=== PATIENT | male | born 1935 | race Caucasian/White ===

== ENCOUNTER 2018-09-28 16:28 | Emergency (ER) | payer MEDICARE, MEDICAID ==
[2018-09-28 17:36] LABS: % BASOPHILS 0.2 % (0.0-2.0); % EOSINOPHILS 2.4 % (0.0-5.0); % LYMPHOCYTES 25.2 % (20.0-50.0); % MONOCYTES 5.6 % (2.0-10.0); % NEUTROPHILS 66.6 % (40.0-80.0); EOSINOPHILE ABSOLUTE 0.2 Th/cmm (0.1-0.4); HEMATOCRIT 41.4 % (41.0-60); HEMOGLOBIN 13.7 gm/dL (12-16); LYMPHOCYTE ABSOLUTE 1.7 Th/cmm (1.5-3.0); MEAN CELL VOLUME 92.1 fl (80-99); MEAN CORPUSCULAR HEMOGLOBIN 30.4 pg (27.0-31.0); MONOCYTE ABSOLUTE 0.4 Th/cmm (0.3-1.0); NEUTROPHILE ABSOLUTE 4.5 Th/cmm (1.8-8.0); PLATELET COUNT 314 Th/cmm (150-400); RED CELL DISTRIBUTION WIDTH 11.7 % (11.5-20.0); WHITE BLOOD COUNT 6.8 Th/cmm (4.8-10.8)
--- NOTE | 2018-09-28 17:46 | ED Physician Chart ---
ED Chief Complaint/HPI - Patient Information Date Seen:: 09/28/18 Time Seen:: 16:55 Chief Complaint:: psychosis History of Present Illness:: this is a custodial patient that was sent here for evaluation and treatment for possible psych condition. Allergies:: Allergies Allergy/AdvReac Type Severity Reaction Status Date / Time No Known Allergies Allergy Verified 09/28/18 16:45 Vitals:: Vital Signs - 8 hr 09/28/18 09/28/18 16:45 17:16 Temp 97.9 F 98.2 F HR 75 65 RR 16 15 BP 132/74 121/62 O2 Sat % 98 65 Historian:: Medical Records Review:: Nurse's Note Reviewed, Transfer documents Reviewed ED Review of Systems - Review of Systems General/Constitutional: Other (this patient is unable to give a review of systems.) Skin: No skin lesions, No rash, No bruising Head: No headache, No light-headedness Eyes: No loss of vision, No pain, No diplopia ENT: No earache, No nasal drainage, No sore throat, No tinnitus Neck: No neck pain, No swelling, No thyromegaly, No stiffness, No mass noted Cardio Vascular: No chest pain, No palpitations, No PND, No orthopnea, No edema Pulmonary: No SOB, No cough, No sputum, No wheezing GI: No nausea, No vomiting, No diarrhea, No pain, No melena, No hematochezia, No constipation, No hematemesis G/U: No dysuria, No frequency, No hematuria Musculoskeletal: No bone or joint pain, No back pain, No muscle pain Endocrine: No polyuria, No polydipsia Psychiatric: No prior psych history, No depression, No anxiety, No suicidal ideation Hematopoietic: No bruising, No lymphadenopathy Allergic/Immuno: No urticaria, No angioedema Neurological: No syncope, No focal symptoms, No weakness, No paresthesia, No headache, No seizure, No dizziness, No confusion, No vertigo ED Past Medical History - Past Medical History Obtainable: Yes Past Medical History: Dyslipidemia, Dementia, Other (bph,) Family History: None Social History: Non Smoker, No Alcohol, No Drug Use, Care Facility Surgical History: None Psychiatricy History: Depression, Dementia Medication: Reviewed ED Physical Exam - Physical Examination General/Constitutional: Awake, Well-developed, well-nourished, Alert, No distress, GCS 15, Non-toxic appearing, Ambulatory Other Gen/Cons comments:: loud and psychotic Head: Atraumatic Eyes: Lids, conjuctiva normal, PERRL, EOMI Skin: Nl inspection, No rash, No skin lesions, No ecchymosis, Well hydrated, No lymphadenopathy ENMT: External ears, nose nl, Nasal exam nl, Lips, teeth, gums nl Neck: Nontender, Full ROM w/o pain, No JVD, No nuchal rigidity, No bruit, No mass, No stridor Respiratory: Nl effort/Exclusion, Clear to Auscultation, No Wheeze/Rhonchi/Rales Cardio Vascular: RRR, No murmur, gallop, rubs, NL S1 S2 GI: No tenderness/rebounding/guarding, No organomegaly, No hernia, Normal BS's, Nondistended, No mass/bruits, No McBurney tenderness : No CVA tenderness Extremities: No tenderness or effusion, Full ROM, normal strength in all extremities, No edema, Normal digits & nails Neuro/Psych: Alert/oriented, DTR's symmetric, Normal sensory exam, Normal motor strength, Judgement/insight normal, Mood normal, Normal gait, No focal deficits Misc: Normal back, No paraspinal tenderness ED Labs/Radiology/EKG Results - Lab Results Results: Abnormal Lab Results 09/28/18 09/28/18 09/28/18 17:05 17:05 17:05 WBC 6.8 RBC 4.50 Hgb 13.7 Hct 41.4 MCV 92.1 MCH 30.4 MCHC Differential 33.0 RDW 11.7 Plt Count 314 MPV 8.6 Neutrophils % 66.6 Lymphocytes % 25.2 Monocytes % 5.6 Eosinophils % 2.4 Basophils % 0.2 PT 10.8 INR 1.04 PTT (Actin FS) 27.5 Sodium 145 Potassium 4.1 Chloride 109 H Carbon Dioxide 27.1 Anion Gap 13.0 BUN 17 Creatinine 1.1 Est GFR ( Amer) TNP Est GFR (Non-Af Amer) TNP BUN/Creatinine Ratio 15.5 Glucose 98 Calcium 9.4 Total Bilirubin 0.4 AST 12 L ALT 9 Alkaline Phosphatase 64 Troponin I Total Protein 7.0 Albumin 4.1 L Globulin 2.9 Albumin/Globulin Ratio 1.4 TSH Urine Source Urine Color Urine Clarity Urine pH Ur Specific [place] Urine Protein Urine Glucose (UA) Urine Ketones Urine Blood Urine Nitrate Urine Bilirubin Urine Urobilinogen Ur Leukocyte Esterase Urine RBC Urine WBC Ur Epithelial Cells Urine Bacteria Urine Mucus 09/28/18 09/28/18 09/28/18 17:05 17:05 17:50 WBC RBC Hgb Hct MCV MCH MCHC Differential RDW Plt Count MPV Neutrophils % Lymphocytes % Monocytes % Eosinophils % Basophils % PT INR PTT (Actin FS) Sodium Potassium Chloride Carbon Dioxide Anion Gap BUN Creatinine Est GFR ( Amer) Est GFR (Non-Af Amer) BUN/Creatinine Ratio Glucose Calcium Total Bilirubin AST ALT Alkaline Phosphatase Troponin I 0.01 Total Protein Albumin Globulin Albumin/Globulin Ratio TSH 1.21 Urine Source CLEAN C Urine Color YELLOW Urine Clarity HAZY Urine pH 8.0 Ur Specific [place] 1.015 Urine Protein TRACE Urine Glucose (UA) NEGATIVE Urine Ketones NEGATIVE Urine Blood LARGE H Urine Nitrate NEGATIVE Urine Bilirubin NEGATIVE Urine Urobilinogen 1.0 Ur Leukocyte Esterase TRACE H Urine RBC 50-100 H Urine WBC 2-5 Ur Epithelial Cells FEW Urine Bacteria FEW Urine Mucus FEW ED Assessment - Assessment General Assessment: psychosis ED Septic Shock - . Is Septic Shock (SBP<90, OR Lactate>4 mmol\L) present?: No - <6hrs of presentation: Vital Signs: Vital Signs - 8 hr 09/28/18 09/28/18 16:45 17:16 Temp 97.9 F 98.2 F HR 75 65 RR 16 15 BP 132/74 121/62 O2 Sat % 98 65 ED Reassessment (Disposition) - Reassessment Reassessment Condition:: Improved - Diagnosis Diagnosis:: psychosis - Aftercare/Follow up Instructions Aftercare/Follow-Up Instructions:: Counseled pt regarding lab results/diagnosis & need follow up, Refer to Discharge Instructions, Counseled pt & family regarding lab results/diagnosis & need follow up - Patient Disposition Discharge/Transfer:: Home Condition at Disposition:: Improved
[2018-09-28 17:48] LABS: INR 1.04 (0.5-1.4)
[2018-09-28 18:09] LABS: URINE BILIRUBIN NEGATIVE (NEGATIVE); URINE BLOOD LARGE (NEGATIVE); URINE GLUCOSE (UA) NEGATIVE (NEGATIVE); URINE KETONE NEGATIVE (NEGATIVE); URINE LEUKOCYTE ESTERASE TRACE (NEGATIVE); URINE MICROSCOPIC INDICATED? YES; URINE NITRATE NEGATIVE (NEGATIVE); URINE PROTEIN TRACE mg/dL (NEGATIVE); URINE SOURCE CLEAN C
[2018-09-28 18:14] LABS: URINE CLARITY HAZY (CLEAR); URINE COLOR YELLOW
[2018-09-28 18:19] LABS: URINE RBC 50-100 /hpf (0-5)
[2018-09-28 18:20] LABS: URINE BACTERIA FEW /hpf (NONE SEEN); URINE EPITHELIAL CELLS FEW /lpf (FEW)
[2018-09-28] MEDS ORDERED: Haloperidol Lactate 5 mg/mL 1mL Vial IM STA (18:35)
[2018-09-28 18:48] LABS: ALB/GLOB RATIO 1.4 (1.0-1.8); ALBUMIN 4.1 gm/dL (4.2-5.5); ALKALINE PHOSPHATASE 64 U/L (34-104); BILIRUBIN,TOTAL 0.4 mg/dL (0.3-1.0); BUN - UREA NITROGEN 17 mg/dL (7-25); CALCIUM SERUM 9.4 mg/dL (8.6-10.3); CARBON DIOXIDE 27.1 mEq/L (21.0-31.0); CHLORIDE 109 mEq/L (98-107); CREATININE - SERUM 1.1 mg/dL (0.7-1.3); GLUCOSE 98 mg/dL (70-105); POTASSIUM SERUM 4.1 mEq/L (3.5-5.1); SGOT 12 U/L (13-39); SGPT/ALT 9 U/L (7-52); SODIUM SERUM 145 mEq/L (136-145)
== END 2018-09-28 18:57 ==
LOC: ER 16:28
DX: F29 Unspecified psychosis not due to a substance or known physiological condition (principal); E78.5 Hyperlipidemia, unspecified; F32.9 Major depressive disorder, single episode, unspecified; F03.90 Unspecified dementia, unspecified severity, without behavioral disturbance, psychotic disturbance, mood disturbance, and anxiety
CPT/HCPCS: 99284; 93005; 84484; 36415; 84443; 85025; 85610; 85730; 81001; 80053; J2060

== ENCOUNTER 2018-12-04 20:20 | Inpatient (IN) | payer MEDICARE, OTHER ==
--- NOTE | 2018-12-04 20:59 | ED Physician Chart ---
ED Chief Complaint/HPI - Patient Information Date Seen:: 12/04/18 Time Seen:: 20:56 Chief Complaint:: combative behaviour History of Present Illness:: 83 yr old male originally from [place] speaks swedish here for combative behavior Allergies:: Allergies Allergy/AdvReac Type Severity Reaction Status Date / Time No Known Allergies Allergy Verified 09/28/18 16:45 Vitals:: Vital Signs - 8 hr 12/04/18 20:20 HR 72 RR 18 BP 118/72 O2 Sat % 99 ED Review of Systems - Review of Systems General/Constitutional: No fever, No chills, No weight loss, No weakness, No diaphoresis, No edema, No loss of appetite Skin: No skin lesions, No rash, No bruising Head: No headache, No light-headedness Eyes: No loss of vision, No pain, No diplopia ENT: No earache, No nasal drainage, No sore throat, No tinnitus Neck: No neck pain, No swelling, No thyromegaly, No stiffness, No mass noted Cardio Vascular: No chest pain, No palpitations, No PND, No orthopnea, No edema Pulmonary: No SOB, No cough, No sputum, No wheezing GI: No nausea, No vomiting, No diarrhea, No pain, No melena, No hematochezia, No constipation, No hematemesis G/U: No dysuria, No frequency, No hematuria Musculoskeletal: No bone or joint pain, No back pain, No muscle pain Endocrine: No polyuria, No polydipsia Psychiatric: No prior psych history, No depression, No anxiety, No suicidal ideation Hematopoietic: No bruising, No lymphadenopathy Allergic/Immuno: No urticaria, No angioedema Neurological: No syncope, No focal symptoms, No weakness, No paresthesia, No headache, No seizure, No dizziness, No confusion, No vertigo ED Past Medical History - Past Medical History Past Medical History: Other (see nurses report) Family Medical History - Family Member Mother History Unknown: Yes ED Physical Exam - Physical Examination General/Constitutional: Awake, Well-developed, well-nourished, Alert, No distress, GCS 15, Non-toxic appearing, Ambulatory Head: Atraumatic Eyes: Lids, conjuctiva normal, PERRL, EOMI Skin: Nl inspection, No rash, No skin lesions, No ecchymosis, Well hydrated, No lymphadenopathy ENMT: External ears, nose nl, Nasal exam nl, Lips, teeth, gums nl Neck: Nontender, Full ROM w/o pain, No JVD, No nuchal rigidity, No bruit, No mass, No stridor Respiratory: Nl effort/Exclusion, Clear to Auscultation, No Wheeze/Rhonchi/Rales Cardio Vascular: RRR, No murmur, gallop, rubs, NL S1 S2 GI: No tenderness/rebounding/guarding, No organomegaly, No hernia, Normal BS's, Nondistended, No mass/bruits, No McBurney tenderness : No CVA tenderness Extremities: No tenderness or effusion, Full ROM, normal strength in all extremities, No edema, Normal digits & nails Neuro/Psych: Alert/oriented, DTR's symmetric, Normal sensory exam, Normal motor strength, Judgement/insight normal, Mood normal, Normal gait, No focal deficits Misc: Normal back, No paraspinal tenderness ED Assessment - Assessment General Assessment: comative behaviour ED Septic Shock - . Is Septic Shock (SBP<90, OR Lactate>4 mmol\L) present?: No - <6hrs of presentation: Vital Signs: Vital Signs - 8 hr / 20:20 HR 72 RR 18 BP 118/72 O2 Sat % 99 ED Reassessment (Disposition) - Reassessment Reassessment:: combative behaviour geropsych - Diagnosis Diagnosis:: as above - Patient Disposition Discharge/Transfer:: Acute Care w/in this hosp Admitted to:: [facility] Condition at Disposition:: Stable
[2018-12-04 21:41] LABS: % EOSINOPHILS 2.6 % (0.0-5.0); % MONOCYTES 7.9 % (2.0-10.0); % NEUTROPHILS 49.5 % (40.0-80.0); EOSINOPHILE ABSOLUTE 0.1 Th/cmm (0.1-0.4); HEMATOCRIT 41.8 % (41.0-60); HEMOGLOBIN 13.9 gm/dL (12-16); LYMPHOCYTE ABSOLUTE 2.3 Th/cmm (1.5-3.0); MEAN CELL VOLUME 91.3 fl (80-99); MEAN CORPUSCULAR HEMOGLOBIN 30.4 pg (27.0-31.0); MEAN CORPUSCULAR HGB CONC 33.3 pg (28.0-36.0); MONOCYTE ABSOLUTE 0.5 Th/cmm (0.3-1.0); NEUTROPHILE ABSOLUTE 2.8 Th/cmm (1.8-8.0); PLATELET COUNT 286 Th/cmm (150-400); RED BLOOD COUNT 4.58 Mil/cmm (3.80-5.80); RED CELL DISTRIBUTION WIDTH 11.3 % (11.5-20.0); WHITE BLOOD COUNT 5.7 Th/cmm (4.8-10.8)
[2018-12-04 22:04] LABS: ALB/GLOB RATIO 1.4 (1.0-1.8); ALKALINE PHOSPHATASE 52 U/L (34-104); ANION GAP 12.6 (7.0-16.0); BILIRUBIN,TOTAL 0.5 mg/dL (0.3-1.0); CALCIUM SERUM 9.1 mg/dL (8.6-10.3); CARBON DIOXIDE 26.3 mEq/L (21.0-31.0); CHLORIDE 106 mEq/L (98-107); CREATININE - SERUM 0.9 mg/dL (0.7-1.3); POTASSIUM SERUM 3.9 mEq/L (3.5-5.1); SGOT 14 U/L (13-39); SGPT/ALT 11 U/L (7-52); SODIUM SERUM 141 mEq/L (136-145); TOTAL PROTEIN,SERUM 6.5 gm/dL (6.0-8.3)
[2018-12-04 23:44] LABS: BUN - UREA NITROGEN 19 mg/dL (7-25)
[2018-12-05 08:01] LABS: ALBUMIN 3.8 gm/dL (4.2-5.5); GLUCOSE 106 mg/dL (70-105)
[2018-12-05] MEDS ORDERED: Aspirin 81mg Chewable Tab PO ONE (10:31)
[2018-12-05] MEDS ORDERED: Aspirin 81mg Chewable Tab ONE (10:32)
[2018-12-06] MEDS ORDERED: Haloperidol Lactate 5 mg/mL 1mL Vial IM STA (18:25)
[2018-12-06] MEDS ORDERED: Haloperidol Lactate 5 mg/mL 1mL Vial ONE (18:55)
[2018-12-07] MEDS ORDERED: Aspirin 81mg Chewable Tab PO STA (11:42)
[2018-12-08] MEDS ORDERED: Aspirin 325 mg EC PO ONE (08:31)
[2018-12-08] MEDS ORDERED: Aspirin 81mg Chewable Tab ONE (09:25)
[2018-12-09] MEDS ORDERED: Aspirin 81mg Chewable Tab PO STA (07:50)
[2018-12-09] MEDS ORDERED: Aspirin 81mg Chewable Tab ONE (08:59)
[2018-12-09] MEDS ORDERED: Haloperidol Lactate 5 mg/mL 1mL Vial ONE (16:25)
[2018-12-09] MEDS ORDERED: Haloperidol Lactate 5 mg/mL 1mL Vial IM STA (16:38)
[2018-12-10] MEDS ORDERED: Maalox 30 mL Cup PO PRN (16:15)
[2018-12-10] MEDS ORDERED: Magnesium Hydroxide (MOM) 30 mL UDC PO PRN (16:15)
--- NOTE | 2018-12-11 09:01 | History and Physical ---
History of Present Illness - HPI Chief Complaint: psychosis HPI: 83 y/o male who presents to [facility] ER for increased combatitive behavoir noted at the SNF. Patient was subsequently transferred to for further evaluation and treatment. Initial labwork done in the ER revealed the following... WBC 5.7 H/H 13.9/41.8 plat 286 Na 141 K 3.9 Bun/Cr 19/0.9 glu 106 PMH includes Major depression, dementia, dyslipidemia, BPH, chronic constipation , OA, h/o CVA, chronic back pain Patient was subsequently admitted for further evaluation and treatment. 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, Dementia GI: Report: No Pertinent Hx, Other (chronic constipation) Psych: Report: Depression Musculoskeletal: Report: Low Back Pain, Osteoarthritis Rheumatologic: Report: No pertinent Hx Infectious Disease: Report: No Pertinent Hx Renal/: Report: Benign Prostatic Enlarg Endocrine: Report: No Pertinent Hx - Past Surgical History Past Surgical History: No pertinent Hx Family Medical History - Family Member Mother History Unknown: Yes Social History Smoke: No Alcohol: None Drugs: None Lives: Intermediate - Medications Home Medications: Home Medication Medication Instructions Recorded Type Acetaminophen [Tylenol] 325 mg PO Q4HR PRN 12/04/18 History Al Hyd/Mg Hyd/Simethicone [Maalox] 30 ml PO Q4HR PRN 12/04/18 History Aspirin [Adult Low Dose Aspirin EC] 81 mg PO DAILY 12/04/18 History Atorvastatin Calcium [Lipitor] 10 mg PO HS 12/04/18 History Clopidogrel Bisulfate [Plavix] 75 mg PO DAILY 12/04/[address] [Depakote DR] 250 mg PO BID 12/04/18 History Docusate Sodium [Colace] 100 mg PO BID 12/04/18 History Donepezil HCl [Aricept] 10 mg PO DAILY 12/04/18 History Lorazepam [Ativan] 1 mg PO Q6HR PRN 12/04/18 History Magnesium Hydroxide [Milk of 30 ml PO DAILY PRN 12/04/18 History Magnesia] Polyethylene Glycol 3350 [Miralax] 17 gm PO DAILY 12/04/18 History QUEtiapine Fumarate [SEROquel] 100 mg PO BID 12/04/18 History Sennosides A and B [Senna] 8.6 mg PO HS 12/04/18 History Tamsulosin [Flomax] 0.4 mg PO HS 12/04/18 History - Allergies Allergies/Adverse Reactions: Allergies Allergy/AdvReac Type Severity Reaction Status Date / Time No Known Allergies Allergy Verified 09/28/18 16:45 Review of Systems - Review of Systems Constitutional: Report: No Significant Eyes: Report: No Significant ENT: Report: No Significant Respiratory: Report: No Significant Cardiovascular: Report: No Significant Gastrointestinal: Report: No Significant Genitourinary: Report: No Significant Musculoskeletal: Report: No Significant Skin: Report: No Significant Neurological: Report: No Significant Physical Exam - Physical Exam HEENT: Report: Ears Nose Throat within normal limits, Pharnyx within normal limits Neck: Report: Within normal limits Cardiovascular Systems: Report: +s1/s2 noted, Regular, Rate and Rhythm Respiratory: Report: Breath Sounds are within normal limits, Clear to Auscultation of lung lorenzo Abdomen: Report: Non-tender to palpation Back: Report: Inspection of back is within normal limits. Extremities: Report: Non-tender to palpation. Skin: Report: Color of skin is within normal limits Neuro/Psych: Report: Mood affect is within normal limits, A+Ox3, CN II-XII intact - Assessment Assessment: psychosis Major Depression Dementia Dyslipidemia BPH Chronic constipation OA h/o CVA chronic back pain - Plan Plan: admit to [facility] continue home meds
[2018-12-11] MEDS ORDERED: Maalox 30 mL Cup PO PRN (09:11)
[2018-12-11] MEDS ORDERED: Magnesium Hydroxide (MOM) 30 mL UDC PO PRN (09:11)
[2018-12-11] MEDS: Multivitamin Tab PO SCH (09:13)
[2018-12-11] MEDS: Atorvastatin Calcium 10 MG TAB PO SCH (20:42)
--- NOTE | 2018-12-11 21:35 | Psychiatric Evaluation ---
DATE OF SERVICE: 12/11/2018 JUSTIFICATION FOR HOSPITALIZATION: Combative behaviors. HISTORY OF PRESENT ILLNESS: This is an 83-year-old male, very confused, states that he is here to "make an ID card." States the year is "71" then corrects himself and states the year is "73," the month "73." When I asked him where he is, he states "this area." The patient apparently was combative. PAST PSYCHIATRIC HISTORY: Concerns for dementia. FAMILY HISTORY: Noncontributory. SOCIAL HISTORY: The patient states he was born in [place], states he is , has one child. Unclear where the patient lives, stating "this area." The patient is currently staying at [facility]. MENTAL STATUS EXAMINATION: Stated age. Fair eye contact. Speech within normal limits, impoverished. Mood "okay." Affect flat. Thought processes were disengaged. No overt SI or HI. Poor insight. PROVISIONAL DIAGNOSES: Concerns for dementia; mood, unspecified; psychosis, unspecified; anxiety, unspecified. MEDICAL: Please see full H and P. ESTIMATED LENGTH OF STAY: 7-10 days. ASSESSMENT: The patient requiring hospitalization concerns for combative behavioral disturbances, agitation. TREATMENT PLAN: Includes group as well as milieu therapy, medication adjustments. CONDITIONS FOR DISCHARGE: Improved mood, improved affect, better control of his behaviors. [facility]# [id number]
--- NOTE | 2018-12-12 07:59 | Progress Notes ---
DATE: SUBJECTIVE: Chart reviewed and the patient interviewed. Also discussed the patient's condition with the staff and reviewed records and labs. The patient is still confused and is still anxious. The patient also is hyperverbal and he is still exhibiting grandiose delusions and thinking that he is a multimillionaire and that he has a lot of millions that he wants to give away through the people. The patient also is still restless and is still in angry mood. Otherwise, the patient is compliant with taking medications with no side effects of medications. ASSESSMENT: The patient is still agitated and is still psychotic. TREATMENT PLAN: We will continue to monitor behavior and condition closely. Also, we will get a Depakote blood level. Also, continue adjusting psychotropic medications and work on behavioral modification. The patient started on Seroquel 100 mg twice a day. The patient is still agitated and still needs close monitoring. Plan to get a Depakote blood level and continue to follow up. Also, work on placement issue and discharge plans. JOB# [id number]
--- NOTE | 2018-12-12 08:03 | General Progress Note ---
Subjective - Review of Systems Service Date: 12/12/18 Subjective: Patient is awake, alert, afebrile VS T 97.4 P 60 R 20 BP 114/60 Objective - Results Result Diagrams: 12/04/18 21:30 12/04/18 21:30 Recent Labs: Laboratory Last Values WBC 5.7 Th/cmm (4.8-10.8) 12/04/18 21:30 RBC 4.58 Mil/cmm (3.80-5.80) 12/04/18 21:30 Hgb 13.9 gm/dL (12-16) 12/04/18 21:30 Hct 41.8 % (41.0-60) 12/04/18 21:30 MCV 91.3 fl (80-99) 12/04/18 21:30 MCH 30.4 pg (27.0-31.0) 12/04/18 21:30 MCHC Differential 33.3 pg (28.0-36.0) 12/04/18 21:30 RDW 11.3 % (11.5-20.0) L 12/04/18 21:30 Plt Count 286 Th/cmm (150-400) 12/04/18 21:30 MPV 8.4 fl 12/04/18 21:30 Neutrophils % 49.5 % (40.0-80.0) 12/04/18 21:30 Lymphocytes % 40.0 % (20.0-50.0) 12/04/18 21:30 Monocytes % 7.9 % (2.0-10.0) 12/04/18 21:30 Eosinophils % 2.6 % (0.0-5.0) 12/04/18 21:30 Basophils % 0.0 % (0.0-2.0) 12/04/18 21:30 Sodium 141 mEq/L (136-145) 12/04/18 21:30 Potassium 3.9 mEq/L (3.5-5.1) 12/04/18 21:30 Chloride 106 mEq/L (98-107) 12/04/18 21:30 Carbon Dioxide 26.3 mEq/L (21.0-31.0) 12/04/18 21:30 Anion Gap 12.6 (7.0-16.0) 12/04/18 21:30 BUN 19 mg/dL (7-25) 12/04/18 21:30 Creatinine 0.9 mg/dL (0.7-1.3) 12/04/18 21:30 Est GFR ( Amer) TNP 12/04/18 21:30 Est GFR (Non-Af Amer) TNP 12/04/18 21:30 BUN/Creatinine Ratio 21.1 12/04/18 21:30 Glucose 106 mg/dL (70-105) H 12/04/18 21:30 Calcium 9.1 mg/dL (8.6-10.3) 12/04/18 21:30 Total Bilirubin 0.5 mg/dL (0.3-1.0) 12/04/18 21:30 AST 14 U/L (13-39) 12/04/18 21:30 ALT 11 U/L (7-52) 12/04/18 21:30 Alkaline Phosphatase 52 U/L (34-104) 12/04/18 21:30 Total Protein 6.5 gm/dL (6.0-8.3) 12/04/18 21:30 Albumin 3.8 gm/dL (4.2-5.5) L 12/04/18 21:30 Globulin 2.7 gm/dL 12/04/18 21:30 Albumin/Globulin Ratio 1.4 (1.0-1.8) 12/04/18 21:30 - Physical Exam Vitals and I&O: Vital Signs Temp 97.4 F 12/12/18 06:40 Pulse 60 12/12/18 06:40 Resp 20 12/12/18 06:40 BP 114/60 12/12/18 06:40 Pulse Ox 97 12/12/18 06:40 Intake & Output 12/11/18 12/12/18 12/12/18 18:59 06:59 18:59 Intake Total 1200 120 Balance 1200 120 Intake: Oral 1200 120 Other: # Voids 3 # Bowel Movements 1 Active Medications: Current Medications Acetaminophen (Tylenol) 650 mg PO Q4HR PRN PRN Reason: Mild Pain / Temp above 100 Stop: 02/08/19 16:14 Al Hydrox/Mg Hydrox/Simethicone (Maalox) 30 ml PO Q4HR PRN PRN Reason: GI DISTRESS Stop: 02/08/19 16:14 Aspirin (Ecotrin) 81 mg PO DAILY [facility] Stop: 02/10/19 08:59 Atorvastatin Calcium (Lipitor) 10 mg PO HS [facility]; Protocol Stop: 02/09/19 20:59 Last Admin: 12/11/18 20:42 Dose: 10 mg Clopidogrel Bisulfate (Plavix) 75 mg PO DAILY [facility] Stop: 02/10/19 08:59 Divalproex Sodium (Depakote Dr) 250 mg PO BID [facility]; Protocol Stop: 02/10/19 08:59 Docusate Sodium (Colace) 100 mg PO BID [facility] Stop: 02/09/19 16:59 Last Admin: 12/11/18 17:23 Dose: Not Given Donepezil HCl (Aricept) 10 mg PO DAILY [facility] Stop: 02/10/19 08:59 Lorazepam (Ativan) 0.5 mg PO Q4HR PRN; Protocol PRN Reason: anxiety Stop: 01/09/19 16:14 Last Admin: 12/11/18 09:13 Dose: 0.5 mg Magnesium Hydroxide (Milk Of Magnesia) 30 ml PO HS PRN PRN Reason: Constipation Multivitamins/Vitamin C (Theragran) 1 tab PO DAILY [facility] Stop: 02/09/19 08:59 Last Admin: 12/11/18 09:13 Dose: 1 tab Polyethylene Glycol (Miralax) 17 gm PO DAILY [facility] Stop: 02/10/19 08:59 Quetiapine Fumarate (Seroquel) 100 mg PO BID [facility]; Protocol Stop: 02/10/19 08:59 Senna (Senna) 8.6 mg PO HS [facility] Stop: 02/09/19 20:59 Last Admin: 12/11/18 20:43 Dose: 8.6 mg Tamsulosin HCl (Flomax) 0.4 mg PO HS [facility] Stop: 02/09/19 20:59 Last Admin: 12/11/18 20:42 Dose: 0.4 mg Zolpidem Tartrate (Ambien) 5 mg PO HS PRN PRN Reason: Insomnia Stop: 02/08/19 16:14 Last Admin: 12/11/18 20:43 Dose: 5 mg General: Alert, Oriented x3, No acute distress HEENT: Atraumatic, PERRLA, EOMI Neck: Supple Cardiovascular: Regular rate, Normal S1, Normal S2 Lungs: Clear to auscultation Abdomen: Bowel sounds, Soft Extremities: no Clubbing, no Cyanosis, no Edema Neurological: Normal gait Assessment/Plan - Assessment Assessment: psychosis Major Depression Dementia Dyslipidemia BPH Chronic constipation OA h/o CVA chronic back pain - Plan Plan: admit to [facility] continue home meds
[2018-12-12] MEDS: Multivitamin Tab PO SCH (10:08)
[2018-12-12] MEDS: POLYETHYLENE GLYCOL 3350 17 GM PACK PO SCH (10:09)
[2018-12-12] MEDS: Atorvastatin Calcium 10 MG TAB PO SCH (20:49)
--- NOTE | 2018-12-13 07:41 | Progress Notes ---
DATE: SUBJECTIVE: Chart reviewed and the patient interviewed. Also discussed the patient's condition with the staff and reviewed records and labs. The patient still has episodes of irritability. The patient also is restless, especially in the beginning of the day. The patient also is still confused and restless and hyperverbal and needs lots of redirections. Otherwise, the patient started on Seroquel 100 mg twice a day with no side effects. The patient continued to also take Depakote, with no side effects. ASSESSMENT: The patient is still agitated. TREATMENT PLAN: We will monitor the patient's behavior and condition. Actually, it seems that Depakote results are pending, so we will wait and see if the results will come back today or not. JOB# [id number]
[2018-12-13] MEDS: Multivitamin Tab PO SCH (08:19)
[2018-12-13] MEDS: POLYETHYLENE GLYCOL 3350 17 GM PACK PO SCH (08:20)
--- NOTE | 2018-12-13 08:28 | General Progress Note ---
Subjective - Review of Systems Service Date: 12/13/18 Subjective: Patient is awake, alert, afebrile VS T 97.1 P 90 R 20 BP 117/52 Objective - Results Result Diagrams: 12/04/18 21:30 12/04/18 21:30 Recent Labs: Laboratory Last Values WBC 5.7 Th/cmm (4.8-10.8) 12/04/18 21:30 RBC 4.58 Mil/cmm (3.80-5.80) 12/04/18 21:30 Hgb 13.9 gm/dL (12-16) 12/04/18 21:30 Hct 41.8 % (41.0-60) 12/04/18 21:30 MCV 91.3 fl (80-99) 12/04/18 21:30 MCH 30.4 pg (27.0-31.0) 12/04/18 21:30 MCHC Differential 33.3 pg (28.0-36.0) 12/04/18 21:30 RDW 11.3 % (11.5-20.0) L 12/04/18 21:30 Plt Count 286 Th/cmm (150-400) 12/04/18 21:30 MPV 8.4 fl 12/04/18 21:30 Neutrophils % 49.5 % (40.0-80.0) 12/04/18 21:30 Lymphocytes % 40.0 % (20.0-50.0) 12/04/18 21:30 Monocytes % 7.9 % (2.0-10.0) 12/04/18 21:30 Eosinophils % 2.6 % (0.0-5.0) 12/04/18 21:30 Basophils % 0.0 % (0.0-2.0) 12/04/18 21:30 Sodium 141 mEq/L (136-145) 12/04/18 21:30 Potassium 3.9 mEq/L (3.5-5.1) 12/04/18 21:30 Chloride 106 mEq/L (98-107) 12/04/18 21:30 Carbon Dioxide 26.3 mEq/L (21.0-31.0) 12/04/18 21:30 Anion Gap 12.6 (7.0-16.0) 12/04/18 21:30 BUN 19 mg/dL (7-25) 12/04/18 21:30 Creatinine 0.9 mg/dL (0.7-1.3) 12/04/18 21:30 Est GFR ( Amer) TNP 12/04/18 21:30 Est GFR (Non-Af Amer) TNP 12/04/18 21:30 BUN/Creatinine Ratio 21.1 12/04/18 21:30 Glucose 106 mg/dL (70-105) H 12/04/18 21:30 Calcium 9.1 mg/dL (8.6-10.3) 12/04/18 21:30 Total Bilirubin 0.5 mg/dL (0.3-1.0) 12/04/18 21:30 AST 14 U/L (13-39) 12/04/18 21:30 ALT 11 U/L (7-52) 12/04/18 21:30 Alkaline Phosphatase 52 U/L (34-104) 12/04/18 21:30 Total Protein 6.5 gm/dL (6.0-8.3) 12/04/18 21:30 Albumin 3.8 gm/dL (4.2-5.5) L 12/04/18 21:30 Globulin 2.7 gm/dL 12/04/18 21:30 Albumin/Globulin Ratio 1.4 (1.0-1.8) 12/04/18 21:30 - Physical Exam Vitals and I&O: Vital Signs Temp 97.1 F 12/12/18 14:00 Pulse 90 12/12/18 14:00 Resp 20 12/12/18 16:08 BP 117/52 12/12/18 14:00 Pulse Ox 95 12/12/18 14:00 Intake & Output 12/12/18 12/13/18 12/13/18 18:59 06:59 18:59 Intake Total 1100 Balance 1100 Intake: Oral 1100 Other: # Bowel Movements 1 Stool Characteristics Soft Brown Active Medications: Current Medications Acetaminophen (Tylenol) 650 mg PO Q4HR PRN PRN Reason: Mild Pain / Temp above 100 Stop: 02/08/19 16:14 Al Hydrox/Mg Hydrox/Simethicone (Maalox) 30 ml PO Q4HR PRN PRN Reason: GI DISTRESS Stop: 02/08/19 16:14 Aspirin (Ecotrin) 81 mg PO DAILY [facility] Stop: 02/10/19 08:59 Last Admin: 12/13/18 08:20 Dose: Not Given Atorvastatin Calcium (Lipitor) 10 mg PO HS [facility]; Protocol Stop: 02/09/19 20:59 Last Admin: 12/12/18 20:49 Dose: 10 mg Clopidogrel Bisulfate (Plavix) 75 mg PO DAILY [facility] Stop: 02/10/19 08:59 Last Admin: 12/13/18 08:19 Dose: 75 mg Divalproex Sodium (Depakote Dr) 250 mg PO BID [facility]; Protocol Stop: 02/10/19 08:59 Last Admin: 12/13/18 08:19 Dose: 250 mg Docusate Sodium (Colace) 100 mg PO BID [facility] Stop: 02/09/19 16:59 Last Admin: 12/13/18 08:20 Dose: Not Given Donepezil HCl (Aricept) 10 mg PO DAILY [facility] Stop: 02/10/19 08:59 Last Admin: 12/13/18 08:19 Dose: 10 mg Lorazepam (Ativan) 0.5 mg PO Q4HR PRN; Protocol PRN Reason: anxiety Stop: 01/09/19 16:14 Last Admin: 12/13/18 08:19 Dose: 0.5 mg Magnesium Hydroxide (Milk Of Magnesia) 30 ml PO HS PRN PRN Reason: Constipation Multivitamins/Vitamin C (Theragran) 1 tab PO DAILY [facility] Stop: 02/09/19 08:59 Last Admin: 12/13/18 08:19 Dose: Not Given Polyethylene Glycol (Miralax) 17 gm PO DAILY [facility] Stop: 02/10/19 08:59 Last Admin: 12/13/18 08:20 Dose: Not Given Quetiapine Fumarate (Seroquel) 100 mg PO BID [facility]; Protocol Stop: 02/10/19 08:59 Last Admin: 12/13/18 08:19 Dose: 100 mg Senna (Senna) 8.6 mg PO HS [facility] Stop: 02/09/19 20:59 Last Admin: 12/12/18 20:49 Dose: 8.6 mg Tamsulosin HCl (Flomax) 0.4 mg PO HS [facility] Stop: 02/09/19 20:59 Last Admin: 12/12/18 20:48 Dose: 0.4 mg Zolpidem Tartrate (Ambien) 5 mg PO HS PRN PRN Reason: Insomnia Stop: 02/08/19 16:14 Last Admin: 12/12/18 20:49 Dose: 5 mg General: Alert, Oriented x3, No acute distress HEENT: Atraumatic, PERRLA, EOMI Neck: Supple Cardiovascular: Regular rate, Normal S1, Normal S2 Lungs: Clear to auscultation Abdomen: Bowel sounds, Soft Extremities: no Clubbing, no Cyanosis, no Edema Neurological: Normal gait Assessment/Plan - Assessment Assessment: psychosis Major Depression Dementia Dyslipidemia BPH Chronic constipation OA h/o CVA chronic back pain - Plan Plan: admit to [facility] continue home meds
[2018-12-13] MEDS: Atorvastatin Calcium 10 MG TAB PO SCH (21:55)
[2018-12-14] MEDS: POLYETHYLENE GLYCOL 3350 17 GM PACK PO SCH (08:03)
[2018-12-14] MEDS: Multivitamin Tab PO SCH (08:03)
--- NOTE | 2018-12-14 08:15 | General Progress Note ---
Subjective - Review of Systems Service Date: 12/14/18 Subjective: Patient is awake, alert, afebrile VS T 95.6 P 100 R 18 BP 94/60 Objective - Results Result Diagrams: 12/04/18 21:30 12/04/18 21:30 Recent Labs: Laboratory Last Values WBC 5.7 Th/cmm (4.8-10.8) 12/04/18 21:30 RBC 4.58 Mil/cmm (3.80-5.80) 12/04/18 21:30 Hgb 13.9 gm/dL (12-16) 12/04/18 21:30 Hct 41.8 % (41.0-60) 12/04/18 21:30 MCV 91.3 fl (80-99) 12/04/18 21:30 MCH 30.4 pg (27.0-31.0) 12/04/18 21:30 MCHC Differential 33.3 pg (28.0-36.0) 12/04/18 21:30 RDW 11.3 % (11.5-20.0) L 12/04/18 21:30 Plt Count 286 Th/cmm (150-400) 12/04/18 21:30 MPV 8.4 fl 12/04/18 21:30 Neutrophils % 49.5 % (40.0-80.0) 12/04/18 21:30 Lymphocytes % 40.0 % (20.0-50.0) 12/04/18 21:30 Monocytes % 7.9 % (2.0-10.0) 12/04/18 21:30 Eosinophils % 2.6 % (0.0-5.0) 12/04/18 21:30 Basophils % 0.0 % (0.0-2.0) 12/04/18 21:30 Sodium 141 mEq/L (136-145) 12/04/18 21:30 Potassium 3.9 mEq/L (3.5-5.1) 12/04/18 21:30 Chloride 106 mEq/L (98-107) 12/04/18 21:30 Carbon Dioxide 26.3 mEq/L (21.0-31.0) 12/04/18 21:30 Anion Gap 12.6 (7.0-16.0) 12/04/18 21:30 BUN 19 mg/dL (7-25) 12/04/18 21:30 Creatinine 0.9 mg/dL (0.7-1.3) 12/04/18 21:30 Est GFR ( Amer) TNP 12/04/18 21:30 Est GFR (Non-Af Amer) TNP 12/04/18 21:30 BUN/Creatinine Ratio 21.1 12/04/18 21:30 Glucose 106 mg/dL (70-105) H 12/04/18 21:30 Calcium 9.1 mg/dL (8.6-10.3) 12/04/18 21:30 Total Bilirubin 0.5 mg/dL (0.3-1.0) 12/04/18 21:30 AST 14 U/L (13-39) 12/04/18 21:30 ALT 11 U/L (7-52) 12/04/18 21:30 Alkaline Phosphatase 52 U/L (34-104) 12/04/18 21:30 Total Protein 6.5 gm/dL (6.0-8.3) 12/04/18 21:30 Albumin 3.8 gm/dL (4.2-5.5) L 12/04/18 21:30 Globulin 2.7 gm/dL 12/04/18 21:30 Albumin/Globulin Ratio 1.4 (1.0-1.8) 12/04/18 21:30 - Physical Exam Vitals and I&O: Vital Signs Temp 95.6 F 12/13/18 20:00 Pulse 100 12/13/18 20:00 Resp 18 12/13/18 20:00 BP 94/60 12/13/18 20:00 Pulse Ox 98 12/13/18 20:00 Intake & Output 12/13/18 12/14/18 12/14/18 18:59 06:59 18:59 Intake Total 900 Balance 900 Intake: Oral 900 Other: # Voids 3 # Bowel Movements 1 Stool Characteristics Soft Brown Active Medications: Current Medications Acetaminophen (Tylenol) 650 mg PO Q4HR PRN PRN Reason: Mild Pain / Temp above 100 Stop: 02/08/19 16:14 Al Hydrox/Mg Hydrox/Simethicone (Maalox) 30 ml PO Q4HR PRN PRN Reason: GI DISTRESS Stop: 02/08/19 16:14 Aspirin (Ecotrin) 81 mg PO DAILY [facility] Stop: 02/10/19 08:59 Last Admin: 12/14/18 08:03 Dose: 81 mg Atorvastatin Calcium (Lipitor) 10 mg PO HS [facility]; Protocol Stop: 02/09/19 20:59 Last Admin: 12/13/18 21:55 Dose: 10 mg Clopidogrel Bisulfate (Plavix) 75 mg PO DAILY [facility] Stop: 02/10/19 08:59 Last Admin: 12/14/18 08:02 Dose: 75 mg Divalproex Sodium (Depakote Dr) 250 mg PO BID [facility]; Protocol Stop: 02/10/19 08:59 Last Admin: 12/14/18 08:02 Dose: 250 mg Docusate Sodium (Colace) 100 mg PO BID [facility] Stop: 02/09/19 16:59 Last Admin: 12/14/18 08:03 Dose: Not Given Donepezil HCl (Aricept) 10 mg PO DAILY [facility] Stop: 02/10/19 08:59 Last Admin: 12/14/18 08:03 Dose: 10 mg Lorazepam (Ativan) 0.5 mg PO Q4HR PRN; Protocol PRN Reason: anxiety Stop: 01/09/19 16:14 Last Admin: 12/13/18 17:37 Dose: 0.5 mg Magnesium Hydroxide (Milk Of Magnesia) 30 ml PO HS PRN PRN Reason: Constipation Multivitamins/Vitamin C (Theragran) 1 tab PO DAILY [facility] Stop: 02/09/19 08:59 Last Admin: 12/14/18 08:03 Dose: Not Given Polyethylene Glycol (Miralax) 17 gm PO DAILY [facility] Stop: 02/10/19 08:59 Last Admin: 12/14/18 08:03 Dose: Not Given Quetiapine Fumarate (Seroquel) 100 mg PO BID [facility]; Protocol Stop: 02/10/19 08:59 Last Admin: 12/14/18 08:02 Dose: 100 mg Senna (Senna) 8.6 mg PO HS [facility] Stop: 02/09/19 20:59 Last Admin: 12/13/18 21:55 Dose: 8.6 mg Tamsulosin HCl (Flomax) 0.4 mg PO HS [facility] Stop: 02/09/19 20:59 Last Admin: 12/13/18 21:58 Dose: 0.4 mg Zolpidem Tartrate (Ambien) 5 mg PO HS PRN PRN Reason: Insomnia Stop: 02/08/19 16:14 Last Admin: 12/13/18 21:56 Dose: 5 mg General: Alert, Oriented x3, No acute distress HEENT: Atraumatic, PERRLA, EOMI Neck: Supple Cardiovascular: Regular rate, Normal S1, Normal S2 Lungs: Clear to auscultation Abdomen: Bowel sounds, Soft Extremities: no Clubbing, no Cyanosis, no Edema Neurological: Normal gait Assessment/Plan - Assessment Assessment: psychosis Major Depression Dementia Dyslipidemia BPH Chronic constipation OA h/o CVA chronic back pain - Plan Plan: admit to [facility] continue home meds
--- NOTE | 2018-12-14 20:24 | Progress Notes ---
DATE: 12/14/[address] Boles covering for Dr. Lucas. HISTORY IDENTIFYING DATA: This is an 83-year-old male with a history of psychosis presenting confused, stating that he is here to make an ID card. HOSPITAL COURSE: Depressed, isolated, withdrawn. Medication reconciliation reviewed. Currently on Coreg, atorvastatin, aspirin, Depakote 250 b.i.d., Aricept 10 mg a day, Seroquel 100 mg p.o. b.i.d. Today on [id number] evaluation, the patient is disengaged in the interview, is not able to give much information beyond what is gathered from the chart, reporting he does not know why he is here, although noted to be restless. MENTAL STATUS EXAMINATION: Episodes of labile irritability, restlessness. ASSESSMENT AND PLAN: We will continue with primary psychiatrist's treatment plan and goals. He continues to be engaged in labile behavior. Depakote levels are pending. [facility]# [id number]
[2018-12-14] MEDS: Atorvastatin Calcium 10 MG TAB PO SCH (20:46)
--- NOTE | 2018-12-15 08:10 | General Progress Note ---
Subjective - Review of Systems Service Date: 12/15/18 Subjective: Patient is awake, alert, afebrile VS T 97.2 P 70 R 20 BP 124/63 Objective - Results Result Diagrams: 12/04/18 21:30 12/04/18 21:30 Recent Labs: Laboratory Last Values WBC 5.7 Th/cmm (4.8-10.8) 12/04/18 21:30 RBC 4.58 Mil/cmm (3.80-5.80) 12/04/18 21:30 Hgb 13.9 gm/dL (12-16) 12/04/18 21:30 Hct 41.8 % (41.0-60) 12/04/18 21:30 MCV 91.3 fl (80-99) 12/04/18 21:30 MCH 30.4 pg (27.0-31.0) 12/04/18 21:30 MCHC Differential 33.3 pg (28.0-36.0) 12/04/18 21:30 RDW 11.3 % (11.5-20.0) L 12/04/18 21:30 Plt Count 286 Th/cmm (150-400) 12/04/18 21:30 MPV 8.4 fl 12/04/18 21:30 Neutrophils % 49.5 % (40.0-80.0) 12/04/18 21:30 Lymphocytes % 40.0 % (20.0-50.0) 12/04/18 21:30 Monocytes % 7.9 % (2.0-10.0) 12/04/18 21:30 Eosinophils % 2.6 % (0.0-5.0) 12/04/18 21:30 Basophils % 0.0 % (0.0-2.0) 12/04/18 21:30 Sodium 141 mEq/L (136-145) 12/04/18 21:30 Potassium 3.9 mEq/L (3.5-5.1) 12/04/18 21:30 Chloride 106 mEq/L (98-107) 12/04/18 21:30 Carbon Dioxide 26.3 mEq/L (21.0-31.0) 12/04/18 21:30 Anion Gap 12.6 (7.0-16.0) 12/04/18 21:30 BUN 19 mg/dL (7-25) 12/04/18 21:30 Creatinine 0.9 mg/dL (0.7-1.3) 12/04/18 21:30 Est GFR ( Amer) TNP 12/04/18 21:30 Est GFR (Non-Af Amer) TNP 12/04/18 21:30 BUN/Creatinine Ratio 21.1 12/04/18 21:30 Glucose 106 mg/dL (70-105) H 12/04/18 21:30 Calcium 9.1 mg/dL (8.6-10.3) 12/04/18 21:30 Total Bilirubin 0.5 mg/dL (0.3-1.0) 12/04/18 21:30 AST 14 U/L (13-39) 12/04/18 21:30 ALT 11 U/L (7-52) 12/04/18 21:30 Alkaline Phosphatase 52 U/L (34-104) 12/04/18 21:30 Total Protein 6.5 gm/dL (6.0-8.3) 12/04/18 21:30 Albumin 3.8 gm/dL (4.2-5.5) L 12/04/18 21:30 Globulin 2.7 gm/dL 12/04/18 21:30 Albumin/Globulin Ratio 1.4 (1.0-1.8) 12/04/18 21:30 - Physical Exam Vitals and I&O: Vital Signs Temp 97.2 F 12/15/18 06:51 Pulse 70 12/15/18 06:51 Resp 20 12/15/18 06:51 BP 124/63 12/15/18 06:51 Pulse Ox 98 12/15/18 06:51 Intake & Output 12/14/18 12/15/18 12/15/18 18:59 06:59 18:59 Intake Total 120 Balance 120 Intake: Oral 120 Other: # Voids 3 3 # Bowel Movements 1 Stool Characteristics Soft Brown Active Medications: Current Medications Acetaminophen (Tylenol) 650 mg PO Q4HR PRN PRN Reason: Mild Pain / Temp above 100 Stop: 02/08/19 16:14 Al Hydrox/Mg Hydrox/Simethicone (Maalox) 30 ml PO Q4HR PRN PRN Reason: GI DISTRESS Stop: 10/19/19 16:14 Aspirin (Ecotrin) 81 mg PO DAILY [facility] Stop: 02/10/19 08:59 Last Admin: 12/14/18 08:03 Dose: 81 mg Atorvastatin Calcium (Lipitor) 10 mg PO HS [facility]; Protocol Stop: 02/09/19 20:59 Last Admin: 12/14/18 20:46 Dose: 10 mg Clopidogrel Bisulfate (Plavix) 75 mg PO DAILY [facility] Stop: 02/10/19 08:59 Last Admin: 12/14/18 08:02 Dose: 75 mg Divalproex Sodium (Depakote Dr) 250 mg PO BID [facility]; Protocol Stop: 02/10/19 08:59 Last Admin: 12/14/18 17:28 Dose: 250 mg Docusate Sodium (Colace) 100 mg PO BID [facility] Stop: 02/09/19 16:59 Last Admin: 12/14/18 17:28 Dose: Not Given Donepezil HCl (Aricept) 10 mg PO DAILY [facility] Stop: 02/10/19 08:59 Last Admin: 12/14/18 08:03 Dose: 10 mg Lorazepam (Ativan) 0.5 mg PO Q4HR PRN; Protocol PRN Reason: anxiety Stop: 01/09/19 16:14 Last Admin: 12/14/18 20:46 Dose: 0.5 mg Magnesium Hydroxide (Milk Of Magnesia) 30 ml PO HS PRN PRN Reason: Constipation Multivitamins/Vitamin C (Theragran) 1 tab PO DAILY [facility] Stop: 02/09/19 08:59 Last Admin: 12/14/18 08:03 Dose: Not Given Polyethylene Glycol (Miralax) 17 gm PO DAILY [facility] Stop: 02/10/19 08:59 Last Admin: 12/14/18 08:03 Dose: Not Given Quetiapine Fumarate (Seroquel) 100 mg PO BID [facility]; Protocol Stop: 02/10/19 08:59 Last Admin: 12/14/18 17:28 Dose: 100 mg Senna (Senna) 8.6 mg PO HS [facility] Stop: 02/09/19 20:59 Last Admin: 12/14/18 20:46 Dose: 8.6 mg Tamsulosin HCl (Flomax) 0.4 mg PO HS [facility] Stop: 02/09/19 20:59 Last Admin: 12/14/18 20:46 Dose: 0.4 mg Zolpidem Tartrate (Ambien) 5 mg PO HS PRN PRN Reason: Insomnia Stop: 02/08/19 16:14 Last Admin: 12/14/18 21:54 Dose: 5 mg General: Alert, Oriented x3, No acute distress HEENT: Atraumatic, PERRLA, EOMI Neck: Supple Cardiovascular: Regular rate, Normal S1, Normal S2 Lungs: Clear to auscultation Abdomen: Bowel sounds, Soft Extremities: no Clubbing, no Cyanosis, no Edema Neurological: Normal gait Assessment/Plan - Assessment Assessment: psychosis Major Depression Dementia Dyslipidemia BPH Chronic constipation OA h/o CVA chronic back pain - Plan Plan: admit to [facility] continue home meds
[2018-12-15] MEDS: Multivitamin Tab PO SCH (08:20)
[2018-12-15] MEDS: POLYETHYLENE GLYCOL 3350 17 GM PACK PO SCH (08:20)
--- NOTE | 2018-12-15 20:01 | Progress Notes ---
DATE: 12/15/2018 SUBJECTIVE: The patient was seen and evaluated. The patient's chart reviewed. Covering for Dr. Lucas. Today on [id number] evaluation, the patient upon every question that he is asking to intervene, he just mostly response thank you, thank you like the way he addressed when attempting to gather any information in regards to pain, emotions. He mostly just focuses on saying thank you, thank you. MENTAL STATUS EXAMINATION: Disorganized to a lot of restlessness, irritability, unpredictable behavior. ASSESSMENT PLAN: Dementia with behavior disturbances, currently on Depakote, Aricept and Seroquel without complications or no signs of oversedation. No tardive dyskinesia. No EPS. We will continue monitoring primary psychiatrist's treatment plan and goals will continue. JOB# [id number]
[2018-12-15] MEDS: Atorvastatin Calcium 10 MG TAB PO SCH (20:06)
--- NOTE | 2018-12-16 07:51 | General Progress Note ---
Subjective - Review of Systems Service Date: 12/16/18 Subjective: Patient is awake, alert, afebrile VS T 97.4 P 96 R 20 BP 120/71 Objective - Results Result Diagrams: 12/04/18 21:30 12/04/18 21:30 Recent Labs: Laboratory Last Values WBC 5.7 Th/cmm (4.8-10.8) 12/04/18 21:30 RBC 4.58 Mil/cmm (3.80-5.80) 12/04/18 21:30 Hgb 13.9 gm/dL (12-16) 12/04/18 21:30 Hct 41.8 % (41.0-60) 12/04/18 21:30 MCV 91.3 fl (80-99) 12/04/18 21:30 MCH 30.4 pg (27.0-31.0) 12/04/18 21:30 MCHC Differential 33.3 pg (28.0-36.0) 12/04/18 21:30 RDW 11.3 % (11.5-20.0) L 12/04/18 21:30 Plt Count 286 Th/cmm (150-400) 12/04/18 21:30 MPV 8.4 fl 12/04/18 21:30 Neutrophils % 49.5 % (40.0-80.0) 12/04/18 21:30 Lymphocytes % 40.0 % (20.0-50.0) 12/04/18 21:30 Monocytes % 7.9 % (2.0-10.0) 12/04/18 21:30 Eosinophils % 2.6 % (0.0-5.0) 12/04/18 21:30 Basophils % 0.0 % (0.0-2.0) 12/04/18 21:30 Sodium 141 mEq/L (136-145) 12/04/18 21:30 Potassium 3.9 mEq/L (3.5-5.1) 12/04/18 21:30 Chloride 106 mEq/L (98-107) 12/04/18 21:30 Carbon Dioxide 26.3 mEq/L (21.0-31.0) 12/04/18 21:30 Anion Gap 12.6 (7.0-16.0) 12/04/18 21:30 BUN 19 mg/dL (7-25) 12/04/18 21:30 Creatinine 0.9 mg/dL (0.7-1.3) 12/04/18 21:30 Est GFR ( Amer) TNP 12/04/18 21:30 Est GFR (Non-Af Amer) TNP 12/04/18 21:30 BUN/Creatinine Ratio 21.1 12/04/18 21:30 Glucose 106 mg/dL (70-105) H 12/04/18 21:30 Calcium 9.1 mg/dL (8.6-10.3) 12/04/18 21:30 Total Bilirubin 0.5 mg/dL (0.3-1.0) 12/04/18 21:30 AST 14 U/L (13-39) 12/04/18 21:30 ALT 11 U/L (7-52) 12/04/18 21:30 Alkaline Phosphatase 52 U/L (34-104) 12/04/18 21:30 Total Protein 6.5 gm/dL (6.0-8.3) 12/04/18 21:30 Albumin 3.8 gm/dL (4.2-5.5) L 12/04/18 21:30 Globulin 2.7 gm/dL 12/04/18 21:30 Albumin/Globulin Ratio 1.4 (1.0-1.8) 12/04/18 21:30 - Physical Exam Vitals and I&O: Vital Signs Temp 97.4 F 12/15/18 14:00 Pulse 96 12/15/18 14:00 Resp 20 12/15/18 14:00 BP 120/71 12/15/18 14:00 Pulse Ox 96 12/15/18 14:00 Intake & Output 12/15/18 12/16/18 12/16/18 18:59 06:59 18:59 Intake Total 1400 120 Balance 1400 120 Intake: Oral 1400 120 Other: # Voids 4 3 # Bowel Movements 1 Active Medications: Current Medications Acetaminophen (Tylenol) 650 mg PO Q4HR PRN PRN Reason: Mild Pain / Temp above 100 Stop: 02/08/19 16:14 Last Admin: 12/15/18 15:12 Dose: 650 mg Al Hydrox/Mg Hydrox/Simethicone (Maalox) 30 ml PO Q4HR PRN PRN Reason: GI DISTRESS Stop: 02/08/19 16:14 Aspirin (Ecotrin) 81 mg PO DAILY [facility] Stop: 02/10/19 08:59 Last Admin: 12/15/18 08:19 Dose: 81 mg Atorvastatin Calcium (Lipitor) 10 mg PO HS [facility]; Protocol Stop: 02/09/19 20:59 Last Admin: 12/15/18 20:06 Dose: 10 mg Clopidogrel Bisulfate (Plavix) 75 mg PO DAILY [facility] Stop: 02/10/19 08:59 Last Admin: 12/15/18 08:19 Dose: 75 mg Divalproex Sodium (Depakote Dr) 250 mg PO BID [facility]; Protocol Stop: 02/10/19 08:59 Last Admin: 12/15/18 17:08 Dose: 250 mg Docusate Sodium (Colace) 100 mg PO BID [facility] Stop: 02/09/19 16:59 Last Admin: 12/15/18 17:08 Dose: 100 mg Donepezil HCl (Aricept) 10 mg PO DAILY [facility] Stop: 02/10/19 08:59 Last Admin: 12/15/18 08:19 Dose: 10 mg Lorazepam (Ativan) 0.5 mg PO Q4HR PRN; Protocol PRN Reason: anxiety Stop: 01/09/19 16:14 Last Admin: 12/15/18 20:31 Dose: 0.5 mg Magnesium Hydroxide (Milk Of Magnesia) 30 ml PO HS PRN PRN Reason: Constipation Multivitamins/Vitamin C (Theragran) 1 tab PO DAILY [facility] Stop: 02/09/19 08:59 Last Admin: 12/15/18 08:20 Dose: 1 tab Polyethylene Glycol (Miralax) 17 gm PO DAILY [facility] Stop: 02/10/19 08:59 Last Admin: 12/15/18 08:20 Dose: Not Given Quetiapine Fumarate (Seroquel) 100 mg PO BID [facility]; Protocol Stop: 02/10/19 08:59 Last Admin: 12/15/18 17:08 Dose: 100 mg Senna (Senna) 8.6 mg PO HS [facility] Stop: 02/09/19 20:59 Last Admin: 12/15/18 20:06 Dose: 8.6 mg Tamsulosin HCl (Flomax) 0.4 mg PO HS [facility] Stop: 02/09/19 20:59 Last Admin: 12/15/18 20:06 Dose: 0.4 mg Zolpidem Tartrate (Ambien) 5 mg PO HS PRN PRN Reason: Insomnia Stop: 02/08/19 16:14 Last Admin: 12/14/18 21:54 Dose: 5 mg General: Alert, Oriented x3, No acute distress HEENT: Atraumatic, PERRLA, EOMI Neck: Supple Cardiovascular: Regular rate, Normal S1, Normal S2 Lungs: Clear to auscultation Abdomen: Bowel sounds, Soft Extremities: no Clubbing, no Cyanosis, no Edema Neurological: Normal gait Assessment/Plan - Assessment Assessment: psychosis Major Depression Dementia Dyslipidemia BPH Chronic constipation OA h/o CVA chronic back pain - Plan Plan: admit to [facility] continue home meds
[2018-12-16] MEDS: POLYETHYLENE GLYCOL 3350 17 GM PACK PO SCH (09:15)
[2018-12-16] MEDS: Multivitamin Tab PO SCH (09:17)
[2018-12-16] MEDS: Atorvastatin Calcium 10 MG TAB PO SCH (20:47)
--- NOTE | 2018-12-16 23:02 | Progress Notes ---
DATE: 12/16/[address] Lucas. Case was discussed with staff of the patient, reviewed records. An 83-year-old male who was admitted on 12/11/2018 because of combative behavior. He was very confused. He believes that he was here to make an ID card unable to tell the date. The patient is demented, confused. Apparently, he came from [facility]. He is [place]. He is , has one child and he is unclear where his family lives, stating this area. The patient unable to make safe plan for self-care, unpredictable, impulsive; however, in general, according to the notes, he has dementia. He has been compliant with the medication with no side effects, no sedation, no nausea, no extrapyramidal symptoms. The staff say that he does not go to today, they are not going to keep his place. It will be a problem to place him and they want him to end up in an unusual place. He is already on medication for dementia and on Depakote for combative behavior and Seroquel 100 mg twice a day with no side effects, no sedation, so the patient at this stage seems to be at his basic level of functioning. No longer acting aggressive and ready to go to [facility] and the patient will be discharged to a lesser level of care. JOB# [id number]
--- NOTE | 2018-12-17 07:57 | General Progress Note ---
Subjective - Review of Systems Service Date: 12/17/18 Subjective: Patient is awake, alert, afebrile VS T 98.7 P 85 R 20 BP 122/77 Objective - Results Result Diagrams: 12/04/18 21:30 12/04/18 21:30 Recent Labs: Laboratory Last Values WBC 5.7 Th/cmm (4.8-10.8) 12/04/18 21:30 RBC 4.58 Mil/cmm (3.80-5.80) 12/04/18 21:30 Hgb 13.9 gm/dL (12-16) 12/04/18 21:30 Hct 41.8 % (41.0-60) 12/04/18 21:30 MCV 91.3 fl (80-99) 12/04/18 21:30 MCH 30.4 pg (27.0-31.0) 12/04/18 21:30 MCHC Differential 33.3 pg (28.0-36.0) 12/04/18 21:30 RDW 11.3 % (11.5-20.0) L 12/04/18 21:30 Plt Count 286 Th/cmm (150-400) 12/04/18 21:30 MPV 8.4 fl 12/04/18 21:30 Neutrophils % 49.5 % (40.0-80.0) 12/04/18 21:30 Lymphocytes % 40.0 % (20.0-50.0) 12/04/18 21:30 Monocytes % 7.9 % (2.0-10.0) 12/04/18 21:30 Eosinophils % 2.6 % (0.0-5.0) 12/04/18 21:30 Basophils % 0.0 % (0.0-2.0) 12/04/18 21:30 Sodium 141 mEq/L (136-145) 12/04/18 21:30 Potassium 3.9 mEq/L (3.5-5.1) 12/04/18 21:30 Chloride 106 mEq/L (98-107) 12/04/18 21:30 Carbon Dioxide 26.3 mEq/L (21.0-31.0) 12/04/18 21:30 Anion Gap 12.6 (7.0-16.0) 12/04/18 21:30 BUN 19 mg/dL (7-25) 12/04/18 21:30 Creatinine 0.9 mg/dL (0.7-1.3) 12/04/18 21:30 Est GFR ( Amer) TNP 12/04/18 21:30 Est GFR (Non-Af Amer) TNP 12/04/18 21:30 BUN/Creatinine Ratio 21.1 12/04/18 21:30 Glucose 106 mg/dL (70-105) H 12/04/18 21:30 Calcium 9.1 mg/dL (8.6-10.3) 12/04/18 21:30 Total Bilirubin 0.5 mg/dL (0.3-1.0) 12/04/18 21:30 AST 14 U/L (13-39) 12/04/18 21:30 ALT 11 U/L (7-52) 12/04/18 21:30 Alkaline Phosphatase 52 U/L (34-104) 12/04/18 21:30 Total Protein 6.5 gm/dL (6.0-8.3) 12/04/18 21:30 Albumin 3.8 gm/dL (4.2-5.5) L 12/04/18 21:30 Globulin 2.7 gm/dL 12/04/18 21:30 Albumin/Globulin Ratio 1.4 (1.0-1.8) 12/04/18 21:30 - Physical Exam Vitals and I&O: Vital Signs Temp 0 F 12/17/18 06:01 Pulse 85 12/16/18 20:41 Resp 20 12/16/18 20:41 BP 122/77 12/16/18 20:41 Pulse Ox 92 12/16/18 20:41 Intake & Output 12/16/18 12/17/18 12/17/18 18:59 06:59 18:59 Intake Total 240 Output Total 1 Balance 239 Weight (lbs) 74.843 kg Intake: Oral 240 Output: Urine/Stool Mix 1 Other: # Voids 3 # Bowel Movements 0 Weight Source Bedscale Active Medications: Current Medications Acetaminophen (Tylenol) 650 mg PO Q4HR PRN PRN Reason: Mild Pain / Temp above 100 Stop: 02/08/19 16:14 Last Admin: 12/15/18 15:12 Dose: 650 mg Al Hydrox/Mg Hydrox/Simethicone (Maalox) 30 ml PO Q4HR PRN PRN Reason: GI DISTRESS Stop: 02/08/19 16:14 Aspirin (Ecotrin) 81 mg PO DAILY [facility] Stop: 02/10/19 08:59 Last Admin: 12/16/18 09:16 Dose: 81 mg Atorvastatin Calcium (Lipitor) 10 mg PO HS [facility]; Protocol Stop: 02/09/19 20:59 Last Admin: 12/16/18 20:47 Dose: 10 mg Clopidogrel Bisulfate (Plavix) 75 mg PO DAILY [facility] Stop: 02/10/19 08:59 Last Admin: 12/16/18 09:16 Dose: 75 mg Divalproex Sodium (Depakote Dr) 250 mg PO BID [facility]; Protocol Stop: 02/10/19 08:59 Last Admin: 12/16/18 17:46 Dose: 250 mg Docusate Sodium (Colace) 100 mg PO BID [facility] Stop: 02/09/19 16:59 Last Admin: 12/16/18 17:46 Dose: 100 mg Donepezil HCl (Aricept) 10 mg PO DAILY [facility] Stop: 02/10/19 08:59 Last Admin: 12/16/18 09:16 Dose: 10 mg Lorazepam (Ativan) 0.5 mg PO Q4HR PRN; Protocol PRN Reason: anxiety Stop: 01/09/19 16:14 Last Admin: 12/16/18 20:47 Dose: 0.5 mg Magnesium Hydroxide (Milk Of Magnesia) 30 ml PO HS PRN PRN Reason: Constipation Multivitamins/Vitamin C (Theragran) 1 tab PO DAILY [facility] Stop: 02/09/19 08:59 Last Admin: 12/16/18 09:17 Dose: 1 tab Polyethylene Glycol (Miralax) 17 gm PO DAILY [facility] Stop: 02/10/19 08:59 Last Admin: 12/16/18 09:15 Dose: 17 gm Quetiapine Fumarate (Seroquel) 100 mg PO BID [facility]; Protocol Stop: 02/10/19 08:59 Last Admin: 12/16/18 17:46 Dose: 100 mg Senna (Senna) 8.6 mg PO HS [facility] Stop: 02/09/19 20:59 Last Admin: 12/16/18 20:47 Dose: 8.6 mg Tamsulosin HCl (Flomax) 0.4 mg PO HS [facility] Stop: 02/09/19 20:59 Last Admin: 12/16/18 20:47 Dose: 0.4 mg Zolpidem Tartrate (Ambien) 5 mg PO HS PRN PRN Reason: Insomnia Stop: 02/08/19 16:14 Last Admin: 12/16/18 21:40 Dose: 5 mg General: Alert, Oriented x3, No acute distress HEENT: Atraumatic, PERRLA, EOMI Neck: Supple Cardiovascular: Regular rate, Normal S1, Normal S2 Lungs: Clear to auscultation Abdomen: Bowel sounds, Soft Extremities: no Clubbing, no Cyanosis, no Edema Neurological: Normal gait Assessment/Plan - Assessment Assessment: psychosis Major Depression Dementia Dyslipidemia BPH Chronic constipation OA h/o CVA chronic back pain - Plan Plan: admit to [facility] continue home meds
[2018-12-17] MEDS: POLYETHYLENE GLYCOL 3350 17 GM PACK PO SCH (09:15)
[2018-12-17] MEDS: Multivitamin Tab PO SCH (09:15)
--- NOTE | 2018-12-17 14:15 | Progress Notes ---
DATE: 12/17/2018 SUBJECTIVE: Case was discussed with staff of the patient, reviewed records. The patient was supposed to have been discharged yesterday, but for some reason the [place] [facility] not [facility] to take him. The staff is still working on it. He is sleeping well, eating well. He denies any intent to harm himself or anyone. He seems to be stable to go to a lesser level of care. Working on placement. I will continue outpatient group therapy, milieu therapy, and adjust medication as needed. JOB# [id number]
[2018-12-17] MEDS: Atorvastatin Calcium 10 MG TAB PO SCH (21:08)
--- NOTE | 2018-12-18 08:04 | General Progress Note ---
Subjective - Review of Systems Service Date: 12/18/18 Subjective: Patient is awake, alert, afebrile VS T 97.9 P 76 R 18 BP 94/58 Objective - Results Result Diagrams: 12/04/18 21:30 12/04/18 21:30 Recent Labs: Laboratory Last Values WBC 5.7 Th/cmm (4.8-10.8) 12/04/18 21:30 RBC 4.58 Mil/cmm (3.80-5.80) 12/04/18 21:30 Hgb 13.9 gm/dL (12-16) 12/04/18 21:30 Hct 41.8 % (41.0-60) 12/04/18 21:30 MCV 91.3 fl (80-99) 12/04/18 21:30 MCH 30.4 pg (27.0-31.0) 12/04/18 21:30 MCHC Differential 33.3 pg (28.0-36.0) 12/04/18 21:30 RDW 11.3 % (11.5-20.0) L 12/04/18 21:30 Plt Count 286 Th/cmm (150-400) 12/04/18 21:30 MPV 8.4 fl 12/04/18 21:30 Neutrophils % 49.5 % (40.0-80.0) 12/04/18 21:30 Lymphocytes % 40.0 % (20.0-50.0) 12/04/18 21:30 Monocytes % 7.9 % (2.0-10.0) 12/04/18 21:30 Eosinophils % 2.6 % (0.0-5.0) 12/04/18 21:30 Basophils % 0.0 % (0.0-2.0) 12/04/18 21:30 Sodium 141 mEq/L (136-145) 12/04/18 21:30 Potassium 3.9 mEq/L (3.5-5.1) 12/04/18 21:30 Chloride 106 mEq/L (98-107) 12/04/18 21:30 Carbon Dioxide 26.3 mEq/L (21.0-31.0) 12/04/18 21:30 Anion Gap 12.6 (7.0-16.0) 12/04/18 21:30 BUN 19 mg/dL (7-25) 12/04/18 21:30 Creatinine 0.9 mg/dL (0.7-1.3) 12/04/18 21:30 Est GFR ( Amer) TNP 12/04/18 21:30 Est GFR (Non-Af Amer) TNP 12/04/18 21:30 BUN/Creatinine Ratio 21.1 12/04/18 21:30 Glucose 106 mg/dL (70-105) H 12/04/18 21:30 Calcium 9.1 mg/dL (8.6-10.3) 12/04/18 21:30 Total Bilirubin 0.5 mg/dL (0.3-1.0) 12/04/18 21:30 AST 14 U/L (13-39) 12/04/18 21:30 ALT 11 U/L (7-52) 12/04/18 21:30 Alkaline Phosphatase 52 U/L (34-104) 12/04/18 21:30 Total Protein 6.5 gm/dL (6.0-8.3) 12/04/18 21:30 Albumin 3.8 gm/dL (4.2-5.5) L 12/04/18 21:30 Globulin 2.7 gm/dL 12/04/18 21:30 Albumin/Globulin Ratio 1.4 (1.0-1.8) 12/04/18 21:30 - Physical Exam Vitals and I&O: Vital Signs Temp 0 F 12/18/18 06:44 Pulse 76 12/17/18 20:35 Resp 18 12/17/18 20:35 BP 94/58 12/17/18 20:35 Pulse Ox 96 12/17/18 20:35 Intake & Output 12/17/18 12/18/18 12/18/18 18:59 06:59 18:59 Intake Total 240 Balance 240 Weight (lbs) 74.843 kg Intake: Oral 240 Other: # Voids 3 # Bowel Movements 0 Weight Source Bedscale Active Medications: Current Medications Acetaminophen (Tylenol) 650 mg PO Q4HR PRN PRN Reason: Mild Pain / Temp above 100 Stop: 02/08/19 16:14 Last Admin: 12/15/18 15:12 Dose: 650 mg Al Hydrox/Mg Hydrox/Simethicone (Maalox) 30 ml PO Q4HR PRN PRN Reason: GI DISTRESS Stop: 02/08/19 16:14 Aspirin (Ecotrin) 81 mg PO DAILY [facility] Stop: 02/10/19 08:59 Last Admin: 12/17/18 09:14 Dose: 81 mg Atorvastatin Calcium (Lipitor) 10 mg PO HS [facility]; Protocol Stop: 02/09/19 20:59 Last Admin: 12/17/18 21:08 Dose: 10 mg Clopidogrel Bisulfate (Plavix) 75 mg PO DAILY [facility] Stop: 02/10/19 08:59 Last Admin: 12/17/18 09:14 Dose: 75 mg Divalproex Sodium (Depakote Dr) 250 mg PO BID [facility]; Protocol Stop: 02/10/19 08:59 Last Admin: 12/17/18 16:13 Dose: Not Given Docusate Sodium (Colace) 100 mg PO BID [facility] Stop: 02/09/19 16:59 Last Admin: 12/17/18 16:13 Dose: Not Given Donepezil HCl (Aricept) 10 mg PO DAILY [facility] Stop: 02/10/19 08:59 Last Admin: 12/17/18 09:15 Dose: 10 mg Lorazepam (Ativan) 0.5 mg PO Q4HR PRN; Protocol PRN Reason: anxiety Stop: 01/09/19 16:14 Last Admin: 12/16/18 20:47 Dose: 0.5 mg Magnesium Hydroxide (Milk Of Magnesia) 30 ml PO HS PRN PRN Reason: Constipation Multivitamins/Vitamin C (Theragran) 1 tab PO DAILY [facility] Stop: 02/09/19 08:59 Last Admin: 12/17/18 09:15 Dose: 1 tab Polyethylene Glycol (Miralax) 17 gm PO DAILY [facility] Stop: 02/10/19 08:59 Last Admin: 12/17/18 09:15 Dose: Not Given Quetiapine Fumarate (Seroquel) 100 mg PO BID [facility]; Protocol Stop: 02/10/19 08:59 Last Admin: 12/17/18 16:13 Dose: Not Given Senna (Senna) 8.6 mg PO HS [facility] Stop: 02/09/19 20:59 Last Admin: 12/17/18 21:08 Dose: 8.6 mg Tamsulosin HCl (Flomax) 0.4 mg PO HS [facility] Stop: 02/09/19 20:59 Last Admin: 12/17/18 21:08 Dose: 0.4 mg Zolpidem Tartrate (Ambien) 5 mg PO HS PRN PRN Reason: Insomnia Stop: 02/08/19 16:14 Last Admin: 12/17/18 21:17 Dose: 5 mg General: Alert, Oriented x3, No acute distress HEENT: Atraumatic, PERRLA, EOMI Neck: Supple Cardiovascular: Regular rate, Normal S1, Normal S2 Lungs: Clear to auscultation Abdomen: Bowel sounds, Soft Extremities: no Clubbing, no Cyanosis, no Edema Neurological: Normal gait Assessment/Plan - Assessment Assessment: psychosis Major Depression Dementia Dyslipidemia BPH Chronic constipation OA h/o CVA chronic back pain - Plan Plan: admit to [facility] continue home meds Nutritional Asmnt/Malnutr-PDOC - Dietary Evaluation Malnutrition Findings (Please click <Entered> for more info): Nutritional Asmnt/Malnutrition Start: 12/17/18 14: 08 Text: Status: Complete Freq: Protocol: Document 12/17/18 14:08 BOB (Rec: 12/17/18 14:10 BOB [id number]) Nutritional Asmnt/Malnutrition Patient General Information Nutritional Screening Low Risk Diagnosis Psychosis Pertinent Medical Hx/Surgical Hx Major depression, Dementia, Dyslipidemia, BPH, Chronic constipation, OA, CVA, Chronic Back Pain Subjective Information Pt is a 83-year-old male admitted on 12/10 from SNF d/t combative behavior. Pt speaks Armenian. Pt was prioritized as low risk to be seen on 12/16, Pt had discharge orders for and was leaving per RN, but SNF did not want the Pt back, so IA is being completed today. HT: 58 WT: 165 LB (75 kg) BMI: 25.09 (Overweight) GI: WNL, Soft, Non-tender BM: 12/16 x1 I/O: 240/1 (+239) Skin: WNL, Intact Juan: 18 Diet Order: Regular Estimated Energy Needs: ( Geriatric, CBW) 9019-8128 kcals (25-30 kcals/ kg) 75-90g Pro (1.0-1.2 g/kg) 0781-6016 ml (25-30 ml/kg) Pt is eating 75-100% of meals Per Meal/Nutrition Activity Record. Dietary is currently providing an estimated 2600 kcals and 120gm Pro, per Pt PO intake this is providing an estimated 2275 kcals and 105gm Pro to meet 100+% kcal and 100+% Pro needs. Current Diet Order/ Nutrition Support Regular Pertinent Medications Maalox (PRN), Lipitor, Colace, MOM (PRN), Theragran, Miralax , Senna, Flomax Pertinent Labs 12/04: Glucose 106, Alb 3.8 Nutritional Hx/Data Height 1.73 m Height (Calculated Centimeters) 172.7 Current Weight (lbs) 74.843 kg Weight (Calculated Kilograms) 74.8 Weight (Calculated Grams) 65571.7 [place] Body Weight 154 LB (70 kg) % [place] Body Weight 107 Body Mass Index (BMI) 25.0 Weight Status Overweight GI Symptoms GI Symptoms None Last BM 12/16 x1 Skin Integrity/Comment: Skin: WNL, Intact Juan: 18 Estimated Nutritional Goals BEE in Kcals: Using Current wt Calories/Kcals/Kg 25-30 Kcals Calculated 1838-7134 Protein: Using Current wt Protein g/k.0-1.2 Protein Calculated 75-90 Fluid: ml 6594-5572 ml (25-30 ml/kg) Nutritional Problem No current Nutrition Prob Problem No nutrition diagnosis at this time. Etiology n/a Signs/Symptoms: n/a Malnutrition Related to Morbid Obesity Malnutrition related to morbid obesity No Intervention/Recommendation Comments Continue with Regular diet as ordered. Expected Outcomes/Goals Expected Outcomes/Goals 1. PO intake to continue to meet 75% of nutritional needs. 2. Monitor PO intake, wt, nutrition related labs, and skin integrity. 3. F/U as low risk in 7 days, 12/24
[2018-12-18] MEDS: Multivitamin Tab PO SCH (08:55)
[2018-12-18] MEDS: POLYETHYLENE GLYCOL 3350 17 GM PACK PO SCH (08:56)
[2018-12-18] MEDS: Atorvastatin Calcium 10 MG TAB PO SCH (20:40)
--- NOTE | 2018-12-19 05:12 | Progress Notes ---
DATE: 12/18/2018 SUBJECTIVE: Chart reviewed and the patient interviewed. Also discussed the patient's condition with the staff and reviewed records and labs. The patient is still anxious and is still in irritable mood. The patient also is still hyperverbal and still has bizarre behavior and also inappropriate behavior. The patient tries to touch people for no reason and touch them inappropriately. Also still having difficulty redirecting him. Otherwise, the patient continued to comply with taking his medications with no side effects of medications. ASSESSMENT: The patient is still aggressive and agitated and can be dangerous to others. TREATMENT PLAN: Continue to monitor his behavior and his condition closely. Also, continue Depakote and Seroquel and Aricept. Also, we will get Depakote blood level and we will continue to follow up closely. JOB# [id number]
--- NOTE | 2018-12-19 07:45 | General Progress Note ---
Subjective - Review of Systems Service Date: 12/19/18 Subjective: Patient is awake, alert, afebrile VS T 97.3 P 79 R 20 BP 136/62 Objective - Results Result Diagrams: 12/04/18 21:30 12/04/18 21:30 Recent Labs: Laboratory Last Values WBC 5.7 Th/cmm (4.8-10.8) 12/04/18 21:30 RBC 4.58 Mil/cmm (3.80-5.80) 12/04/18 21:30 Hgb 13.9 gm/dL (12-16) 12/04/18 21:30 Hct 41.8 % (41.0-60) 12/04/18 21:30 MCV 91.3 fl (80-99) 12/04/18 21:30 MCH 30.4 pg (27.0-31.0) 12/04/18 21:30 MCHC Differential 33.3 pg (28.0-36.0) 12/04/18 21:30 RDW 11.3 % (11.5-20.0) L 12/04/18 21:30 Plt Count 286 Th/cmm (150-400) 12/04/18 21:30 MPV 8.4 fl 12/04/18 21:30 Neutrophils % 49.5 % (40.0-80.0) 12/04/18 21:30 Lymphocytes % 40.0 % (20.0-50.0) 12/04/18 21:30 Monocytes % 7.9 % (2.0-10.0) 12/04/18 21:30 Eosinophils % 2.6 % (0.0-5.0) 12/04/18 21:30 Basophils % 0.0 % (0.0-2.0) 12/04/18 21:30 Sodium 141 mEq/L (136-145) 12/04/18 21:30 Potassium 3.9 mEq/L (3.5-5.1) 12/04/18 21:30 Chloride 106 mEq/L (98-107) 12/04/18 21:30 Carbon Dioxide 26.3 mEq/L (21.0-31.0) 12/04/18 21:30 Anion Gap 12.6 (7.0-16.0) 12/04/18 21:30 BUN 19 mg/dL (7-25) 12/04/18 21:30 Creatinine 0.9 mg/dL (0.7-1.3) 12/04/18 21:30 Est GFR ( Amer) TNP 12/04/18 21:30 Est GFR (Non-Af Amer) TNP 12/04/18 21:30 BUN/Creatinine Ratio 21.1 12/04/18 21:30 Glucose 106 mg/dL (70-105) H 12/04/18 21:30 Calcium 9.1 mg/dL (8.6-10.3) 12/04/18 21:30 Total Bilirubin 0.5 mg/dL (0.3-1.0) 12/04/18 21:30 AST 14 U/L (13-39) 12/04/18 21:30 ALT 11 U/L (7-52) 12/04/18 21:30 Alkaline Phosphatase 52 U/L (34-104) 12/04/18 21:30 Total Protein 6.5 gm/dL (6.0-8.3) 12/04/18 21:30 Albumin 3.8 gm/dL (4.2-5.5) L 12/04/18 21:30 Globulin 2.7 gm/dL 12/04/18 21:30 Albumin/Globulin Ratio 1.4 (1.0-1.8) 12/04/18 21:30 - Physical Exam Vitals and I&O: Vital Signs Temp 97.3 F 12/18/18 21:08 Pulse 79 12/18/18 21:08 Resp 20 12/18/18 21:08 BP 136/62 12/18/18 21:08 Pulse Ox 100 12/18/18 21:08 Intake & Output 12/18/18 12/19/18 12/19/18 18:59 06:59 18:59 Intake Total 240 Balance 240 Intake: Oral 240 Other: # Voids 3 2 # Bowel Movements 2 0 Active Medications: Current Medications Acetaminophen (Tylenol) 650 mg PO Q4HR PRN PRN Reason: Mild Pain / Temp above 100 Stop: 02/08/19 16:14 Last Admin: 12/15/18 15:12 Dose: 650 mg Al Hydrox/Mg Hydrox/Simethicone (Maalox) 30 ml PO Q4HR PRN PRN Reason: GI DISTRESS Stop: 02/08/19 16:14 Aspirin (Ecotrin) 81 mg PO DAILY [facility] Stop: 02/10/19 08:59 Last Admin: 12/18/18 08:55 Dose: 81 mg Atorvastatin Calcium (Lipitor) 10 mg PO HS [facility]; Protocol Stop: 02/09/19 20:59 Last Admin: 12/18/18 20:40 Dose: 10 mg Clopidogrel Bisulfate (Plavix) 75 mg PO DAILY [facility] Stop: 02/10/19 08:59 Last Admin: 12/18/18 08:55 Dose: 75 mg Divalproex Sodium (Depakote Dr) 250 mg PO BID [facility]; Protocol Stop: 02/10/19 08:59 Last Admin: 12/18/18 16:59 Dose: 250 mg Docusate Sodium (Colace) 100 mg PO BID [facility] Stop: 02/09/19 16:59 Last Admin: 12/18/18 16:59 Dose: 100 mg Donepezil HCl (Aricept) 10 mg PO DAILY [facility] Stop: 02/10/19 08:59 Last Admin: 12/18/18 08:55 Dose: 10 mg Lorazepam (Ativan) 0.5 mg PO Q4HR PRN; Protocol PRN Reason: anxiety Stop: 01/09/19 16:14 Last Admin: 12/18/18 20:40 Dose: 0.5 mg Magnesium Hydroxide (Milk Of Magnesia) 30 ml PO HS PRN PRN Reason: Constipation Multivitamins/Vitamin C (Theragran) 1 tab PO DAILY [facility] Stop: 02/09/19 08:59 Last Admin: 12/18/18 08:55 Dose: 1 tab Polyethylene Glycol (Miralax) 17 gm PO DAILY [facility] Stop: 02/10/19 08:59 Last Admin: 12/18/18 08:56 Dose: 17 gm Quetiapine Fumarate (Seroquel) 100 mg PO BID [facility]; Protocol Stop: 02/10/19 08:59 Last Admin: 12/18/18 16:59 Dose: 100 mg Senna (Senna) 8.6 mg PO HS [facility] Stop: 02/09/19 20:59 Last Admin: 12/18/18 20:40 Dose: 8.6 mg Tamsulosin HCl (Flomax) 0.4 mg PO HS [facility] Stop: 02/09/19 20:59 Last Admin: 12/18/18 20:40 Dose: 0.4 mg Zolpidem Tartrate (Ambien) 5 mg PO HS PRN PRN Reason: Insomnia Stop: 02/08/19 16:14 Last Admin: 12/17/18 21:17 Dose: 5 mg General: Alert, Oriented x3, No acute distress HEENT: Atraumatic, PERRLA, EOMI Neck: Supple Cardiovascular: Regular rate, Normal S1, Normal S2 Lungs: Clear to auscultation Abdomen: Bowel sounds, Soft Extremities: no Clubbing, no Cyanosis, no Edema Neurological: Normal gait Assessment/Plan - Assessment Assessment: psychosis Major Depression Dementia Dyslipidemia BPH Chronic constipation OA h/o CVA chronic back pain - Plan Plan: admit to [facility] continue home meds Nutritional Asmnt/Malnutr-PDOC - Dietary Evaluation Malnutrition Findings (Please click <Entered> for more info): Nutritional Asmnt/Malnutrition Start: 12/17/18 14: 08 Text: Status: Complete Freq: Protocol: Document 12/17/18 14:08 BOB (Rec: 12/17/18 14:10 BOB [id number]) Nutritional Asmnt/Malnutrition Patient General Information Nutritional Screening Low Risk Diagnosis Psychosis Pertinent Medical Hx/Surgical Hx Major depression, Dementia, Dyslipidemia, BPH, Chronic constipation, OA, CVA, Chronic Back Pain Subjective Information Pt is a 83-year-old male admitted on 12/10 from SNF d/t combative behavior. Pt speaks Estonian. Pt was prioritized as low risk to be seen on 12/16, Pt had discharge orders for and was leaving per RN, but SNF did not want the Pt back, so IA is being completed today. HT: 58 WT: 165 LB (75 kg) BMI: 25.09 (Overweight) GI: WNL, Soft, Non-tender BM: 12/16 x1 I/O: 240/1 (+239) Skin: WNL, Intact Juan: 18 Diet Order: Regular Estimated Energy Needs: ( Geriatric, CBW) 5426-8934 kcals (25-30 kcals/ kg) 75-90g Pro (1.0-1.2 g/kg) 3816-0613 ml (25-30 ml/kg) Pt is eating 75-100% of meals Per Meal/Nutrition Activity Record. Dietary is currently providing an estimated 2600 kcals and 120gm Pro, per Pt PO intake this is providing an estimated 2275 kcals and 105gm Pro to meet 100+% kcal and 100+% Pro needs. Current Diet Order/ Nutrition Support Regular Pertinent Medications Maalox (PRN), Lipitor, Colace, MOM (PRN), Theragran, Miralax , Senna, Flomax Pertinent Labs 12/04: Glucose 106, Alb 3.8 Nutritional Hx/Data Height 1.73 m Height (Calculated Centimeters) 172.7 Current Weight (lbs) 74.843 kg Weight (Calculated Kilograms) 74.8 Weight (Calculated Grams) 33336.7 [place] Body Weight 154 LB (70 kg) % [place] Body Weight 107 Body Mass Index (BMI) 25.0 Weight Status Overweight GI Symptoms GI Symptoms None Last BM 12/16 x1 Skin Integrity/Comment: Skin: WNL, Intact Juan: 18 Estimated Nutritional Goals BEE in Kcals: Using Current wt Calories/Kcals/Kg 25-30 Kcals Calculated 7953-3211 Protein: Using Current wt Protein g/k.0-1.2 Protein Calculated 75-90 Fluid: ml 1830-5837 ml (25-30 ml/kg) Nutritional Problem No current Nutrition Prob Problem No nutrition diagnosis at this time. Etiology n/a Signs/Symptoms: n/a Malnutrition Related to Morbid Obesity Malnutrition related to morbid obesity No Intervention/Recommendation Comments Continue with Regular diet as ordered. Expected Outcomes/Goals Expected Outcomes/Goals 1. PO intake to continue to meet 75% of nutritional needs. 2. Monitor PO intake, wt, nutrition related labs, and skin integrity. 3. F/U as low risk in 7 days, 12/24
[2018-12-19] MEDS: Multivitamin Tab PO SCH (08:54)
[2018-12-19] MEDS: POLYETHYLENE GLYCOL 3350 17 GM PACK PO SCH (08:54)
[2018-12-19] MEDS: Atorvastatin Calcium 10 MG TAB PO SCH (21:31)
--- NOTE | 2018-12-19 22:28 | Progress Notes ---
DATE: 12/19/2018 SUBJECTIVE: An 83-year-old male, confused, believing he is here to make some sort of an ID card. The patient is only speaking Japanese with me, although when I saw him a few days ago, he was speaking [place]. The patient is yelling the names of other patients for some unclear reason, gets angry, still irritable, and hyperverbal. Apparently, he is trying to touch people inappropriately. Per Dr. Lucas who saw him yesterday, ongoing agitation, still can be dangerous to others, concerns about the safety of those around him at this time, and very confused. PLAN: We will continue to monitor. Medications were reviewed. We will continue Dr. Lucas's medication regimen including Seroquel 100 mg twice daily. Family is involved, calling, checking up on him and his wellbeing in the hospital. JOB# [id number]
--- NOTE | 2018-12-20 08:06 | General Progress Note ---
Subjective - Review of Systems Service Date: 12/20/18 Subjective: Patient is awake, alert, afebrile VS T 96.5 P 87 R 20 BP 121/64 Objective - Results Result Diagrams: 12/04/18 21:30 12/04/18 21:30 Recent Labs: Laboratory Last Values WBC 5.7 Th/cmm (4.8-10.8) 12/04/18 21:30 RBC 4.58 Mil/cmm (3.80-5.80) 12/04/18 21:30 Hgb 13.9 gm/dL (12-16) 12/04/18 21:30 Hct 41.8 % (41.0-60) 12/04/18 21:30 MCV 91.3 fl (80-99) 12/04/18 21:30 MCH 30.4 pg (27.0-31.0) 12/04/18 21:30 MCHC Differential 33.3 pg (28.0-36.0) 12/04/18 21:30 RDW 11.3 % (11.5-20.0) L 12/04/18 21:30 Plt Count 286 Th/cmm (150-400) 12/04/18 21:30 MPV 8.4 fl 12/04/18 21:30 Neutrophils % 49.5 % (40.0-80.0) 12/04/18 21:30 Lymphocytes % 40.0 % (20.0-50.0) 12/04/18 21:30 Monocytes % 7.9 % (2.0-10.0) 12/04/18 21:30 Eosinophils % 2.6 % (0.0-5.0) 12/04/18 21:30 Basophils % 0.0 % (0.0-2.0) 12/04/18 21:30 Sodium 141 mEq/L (136-145) 12/04/18 21:30 Potassium 3.9 mEq/L (3.5-5.1) 12/04/18 21:30 Chloride 106 mEq/L (98-107) 12/04/18 21:30 Carbon Dioxide 26.3 mEq/L (21.0-31.0) 12/04/18 21:30 Anion Gap 12.6 (7.0-16.0) 12/04/18 21:30 BUN 19 mg/dL (7-25) 12/04/18 21:30 Creatinine 0.9 mg/dL (0.7-1.3) 12/04/18 21:30 Est GFR ( Amer) TNP 12/04/18 21:30 Est GFR (Non-Af Amer) TNP 12/04/18 21:30 BUN/Creatinine Ratio 21.1 12/04/18 21:30 Glucose 106 mg/dL (70-105) H 12/04/18 21:30 Calcium 9.1 mg/dL (8.6-10.3) 12/04/18 21:30 Total Bilirubin 0.5 mg/dL (0.3-1.0) 12/04/18 21:30 AST 14 U/L (13-39) 12/04/18 21:30 ALT 11 U/L (7-52) 12/04/18 21:30 Alkaline Phosphatase 52 U/L (34-104) 12/04/18 21:30 Total Protein 6.5 gm/dL (6.0-8.3) 12/04/18 21:30 Albumin 3.8 gm/dL (4.2-5.5) L 12/04/18 21:30 Globulin 2.7 gm/dL 12/04/18 21:30 Albumin/Globulin Ratio 1.4 (1.0-1.8) 12/04/18 21:30 - Physical Exam Vitals and I&O: Vital Signs Temp 96.5 F 12/19/18 20:00 Pulse 87 12/19/18 20:00 Resp 20 12/19/18 20:00 BP 121/64 12/19/18 14:00 Pulse Ox 98 12/19/18 20:00 Intake & Output 12/19/18 12/20/18 12/20/18 18:59 06:59 18:59 Intake Total 960 120 Balance 960 120 Intake: Oral 960 120 Other: # Voids 4 3 # Bowel Movements 1 Active Medications: Current Medications Acetaminophen (Tylenol) 650 mg PO Q4HR PRN PRN Reason: Mild Pain / Temp above 100 Stop: 02/08/19 16:14 Last Admin: 12/15/18 15:12 Dose: 650 mg Al Hydrox/Mg Hydrox/Simethicone (Maalox) 30 ml PO Q4HR PRN PRN Reason: GI DISTRESS Stop: 02/08/19 16:14 Aspirin (Ecotrin) 81 mg PO DAILY [facility] Stop: 02/10/19 08:59 Last Admin: 12/19/18 08:54 Dose: 81 mg Atorvastatin Calcium (Lipitor) 10 mg PO HS [facility]; Protocol Stop: 02/09/19 20:59 Last Admin: 12/19/18 21:31 Dose: 10 mg Clopidogrel Bisulfate (Plavix) 75 mg PO DAILY [facility] Stop: 02/10/19 08:59 Last Admin: 12/19/18 08:54 Dose: 75 mg Divalproex Sodium (Depakote Dr) 250 mg PO BID [facility]; Protocol Stop: 02/10/19 08:59 Last Admin: 12/19/18 17:31 Dose: 250 mg Docusate Sodium (Colace) 100 mg PO BID [facility] Stop: 02/09/19 16:59 Last Admin: 12/19/18 17:31 Dose: 100 mg Donepezil HCl (Aricept) 10 mg PO DAILY [facility] Stop: 02/10/19 08:59 Last Admin: 12/19/18 08:54 Dose: 10 mg Lorazepam (Ativan) 0.5 mg PO Q4HR PRN; Protocol PRN Reason: anxiety Stop: 01/09/19 16:14 Last Admin: 12/19/18 09:17 Dose: 0.5 mg Magnesium Hydroxide (Milk Of Magnesia) 30 ml PO HS PRN PRN Reason: Constipation Multivitamins/Vitamin C (Theragran) 1 tab PO DAILY [facility] Stop: 02/09/19 08:59 Last Admin: 12/19/18 08:54 Dose: 1 tab Polyethylene Glycol (Miralax) 17 gm PO DAILY [facility] Stop: 02/10/19 08:59 Last Admin: 12/19/18 08:54 Dose: 17 gm Quetiapine Fumarate (Seroquel) 100 mg PO BID [facility]; Protocol Stop: 02/10/19 08:59 Last Admin: 12/19/18 17:31 Dose: 100 mg Senna (Senna) 8.6 mg PO HS [facility] Stop: 02/09/19 20:59 Last Admin: 12/19/18 21:32 Dose: 8.6 mg Tamsulosin HCl (Flomax) 0.4 mg PO HS [facility] Stop: 02/09/19 20:59 Last Admin: 12/19/18 21:32 Dose: 0.4 mg Zolpidem Tartrate (Ambien) 5 mg PO HS PRN PRN Reason: Insomnia Stop: 02/08/19 16:14 Last Admin: 12/19/18 21:47 Dose: 5 mg General: Alert, Oriented x3, No acute distress HEENT: Atraumatic, PERRLA, EOMI Neck: Supple Cardiovascular: Regular rate, Normal S1, Normal S2 Lungs: Clear to auscultation Abdomen: Bowel sounds, Soft Extremities: no Clubbing, no Cyanosis, no Edema Neurological: Normal gait Assessment/Plan - Assessment Assessment: psychosis Major Depression Dementia Dyslipidemia BPH Chronic constipation OA h/o CVA chronic back pain - Plan Plan: admit to [facility] continue home meds Nutritional Asmnt/Malnutr-PDOC - Dietary Evaluation Malnutrition Findings (Please click <Entered> for more info): Nutritional Asmnt/Malnutrition Start: 12/17/18 14: 08 Text: Status: Complete Freq: Protocol: Document 12/17/18 14:08 BOB (Rec: 12/17/18 14:10 BOB [id number]) Nutritional Asmnt/Malnutrition Patient General Information Nutritional Screening Low Risk Diagnosis Psychosis Pertinent Medical Hx/Surgical Hx Major depression, Dementia, Dyslipidemia, BPH, Chronic constipation, OA, CVA, Chronic Back Pain Subjective Information Pt is a 83-year-old male admitted on 12/10 from SNF d/t combative behavior. Pt speaks Wolof. Pt was prioritized as low risk to be seen on 12/16, Pt had discharge orders for and was leaving per RN, but SNF did not want the Pt back, so IA is being completed today. HT: 58 WT: 165 LB (75 kg) BMI: 25.09 (Overweight) GI: WNL, Soft, Non-tender BM: 12/16 x1 I/O: 240/1 (+239) Skin: WNL, Intact Juan: 18 Diet Order: Regular Estimated Energy Needs: ( Geriatric, CBW) 0146-2479 kcals (25-30 kcals/ kg) 75-90g Pro (1.0-1.2 g/kg) 1911-6223 ml (25-30 ml/kg) Pt is eating 75-100% of meals Per Meal/Nutrition Activity Record. Dietary is currently providing an estimated 2600 kcals and 120gm Pro, per Pt PO intake this is providing an estimated 2275 kcals and 105gm Pro to meet 100+% kcal and 100+% Pro needs. Current Diet Order/ Nutrition Support Regular Pertinent Medications Maalox (PRN), Lipitor, Colace, MOM (PRN), Theragran, Miralax , Senna, Flomax Pertinent Labs 12/04: Glucose 106, Alb 3.8 Nutritional Hx/Data Height 1.73 m Height (Calculated Centimeters) 172.7 Current Weight (lbs) 74.843 kg Weight (Calculated Kilograms) 74.8 Weight (Calculated Grams) 75321.7 [place] Body Weight 154 LB (70 kg) % [place] Body Weight 107 Body Mass Index (BMI) 25.0 Weight Status Overweight GI Symptoms GI Symptoms None Last BM 12/16 x1 Skin Integrity/Comment: Skin: WNL, Intact Juan: 18 Estimated Nutritional Goals BEE in Kcals: Using Current wt Calories/Kcals/Kg 25-30 Kcals Calculated 8260-0087 Protein: Using Current wt Protein g/k.0-1.2 Protein Calculated 75-90 Fluid: ml 9592-4030 ml (25-30 ml/kg) Nutritional Problem No current Nutrition Prob Problem No nutrition diagnosis at this time. Etiology n/a Signs/Symptoms: n/a Malnutrition Related to Morbid Obesity Malnutrition related to morbid obesity No Intervention/Recommendation Comments Continue with Regular diet as ordered. Expected Outcomes/Goals Expected Outcomes/Goals 1. PO intake to continue to meet 75% of nutritional needs. 2. Monitor PO intake, wt, nutrition related labs, and skin integrity. 3. F/U as low risk in 7 days, 12/24
[2018-12-20] MEDS: Multivitamin Tab PO SCH (08:13)
[2018-12-20] MEDS: POLYETHYLENE GLYCOL 3350 17 GM PACK PO SCH (08:13)
[2018-12-20] MEDS: Atorvastatin Calcium 10 MG TAB PO SCH (21:20)
--- NOTE | 2018-12-20 22:59 | Progress Notes ---
DATE: 12/20/2018 The patient in the hospital, sleeping, but arousable, refusing to speak with me right now. I went to see him yesterday, he was yelling, still he is pretty impulsive, unpredictable, anxious, rambling at times. Staff sometimes needing to give him emergency orders of medications. Per [facility] [employer], the patient coming from [facility]. Staff noting that he has been somewhat more cooperative, but still highly impulsive, unpredictable. Concerns about his yelling episodes that he may strike out at others. We will continue to monitor. Medications were reviewed. No overt side effects at this time. He seems to have some family involvement and family support. [facility]# [id number]
--- NOTE | 2018-12-21 07:53 | General Progress Note ---
Subjective - Review of Systems Service Date: 12/21/18 Subjective: Patient is awake, alert, afebrile VS T 97.6 P 81 R 18 BP 123/58 Objective - Results Result Diagrams: 12/04/18 21:30 12/04/18 21:30 Recent Labs: Laboratory Last Values WBC 5.7 Th/cmm (4.8-10.8) 12/04/18 21:30 RBC 4.58 Mil/cmm (3.80-5.80) 12/04/18 21:30 Hgb 13.9 gm/dL (12-16) 12/04/18 21:30 Hct 41.8 % (41.0-60) 12/04/18 21:30 MCV 91.3 fl (80-99) 12/04/18 21:30 MCH 30.4 pg (27.0-31.0) 12/04/18 21:30 MCHC Differential 33.3 pg (28.0-36.0) 12/04/18 21:30 RDW 11.3 % (11.5-20.0) L 12/04/18 21:30 Plt Count 286 Th/cmm (150-400) 12/04/18 21:30 MPV 8.4 fl 12/04/18 21:30 Neutrophils % 49.5 % (40.0-80.0) 12/04/18 21:30 Lymphocytes % 40.0 % (20.0-50.0) 12/04/18 21:30 Monocytes % 7.9 % (2.0-10.0) 12/04/18 21:30 Eosinophils % 2.6 % (0.0-5.0) 12/04/18 21:30 Basophils % 0.0 % (0.0-2.0) 12/04/18 21:30 Sodium 141 mEq/L (136-145) 12/04/18 21:30 Potassium 3.9 mEq/L (3.5-5.1) 12/04/18 21:30 Chloride 106 mEq/L (98-107) 12/04/18 21:30 Carbon Dioxide 26.3 mEq/L (21.0-31.0) 12/04/18 21:30 Anion Gap 12.6 (7.0-16.0) 12/04/18 21:30 BUN 19 mg/dL (7-25) 12/04/18 21:30 Creatinine 0.9 mg/dL (0.7-1.3) 12/04/18 21:30 Est GFR ( Amer) TNP 12/04/18 21:30 Est GFR (Non-Af Amer) TNP 12/04/18 21:30 BUN/Creatinine Ratio 21.1 12/04/18 21:30 Glucose 106 mg/dL (70-105) H 12/04/18 21:30 Calcium 9.1 mg/dL (8.6-10.3) 12/04/18 21:30 Total Bilirubin 0.5 mg/dL (0.3-1.0) 12/04/18 21:30 AST 14 U/L (13-39) 12/04/18 21:30 ALT 11 U/L (7-52) 12/04/18 21:30 Alkaline Phosphatase 52 U/L (34-104) 12/04/18 21:30 Total Protein 6.5 gm/dL (6.0-8.3) 12/04/18 21:30 Albumin 3.8 gm/dL (4.2-5.5) L 12/04/18 21:30 Globulin 2.7 gm/dL 12/04/18 21:30 Albumin/Globulin Ratio 1.4 (1.0-1.8) 12/04/18 21:30 - Physical Exam Vitals and I&O: Vital Signs Temp 97.6 F 12/20/18 14:00 Pulse 81 12/20/18 14:00 Resp 18 12/20/18 14:00 BP 123/58 12/20/18 14:00 Pulse Ox 97 12/20/18 14:00 Intake & Output 12/20/18 12/21/18 12/21/18 18:59 06:59 18:59 Intake Total 900 Balance 900 Intake: Oral 900 Other: # Voids 3 # Bowel Movements 1 Active Medications: Current Medications Acetaminophen (Tylenol) 650 mg PO Q4HR PRN PRN Reason: Mild Pain / Temp above 100 Stop: 02/08/19 16:14 Last Admin: 12/15/18 15:12 Dose: 650 mg Al Hydrox/Mg Hydrox/Simethicone (Maalox) 30 ml PO Q4HR PRN PRN Reason: GI DISTRESS Stop: 02/08/19 16:14 Aspirin (Ecotrin) 81 mg PO DAILY [facility] Stop: 02/10/19 08:59 Last Admin: 12/20/18 08:12 Dose: 81 mg Atorvastatin Calcium (Lipitor) 10 mg PO HS [facility]; Protocol Stop: 02/09/19 20:59 Last Admin: 12/20/18 21:20 Dose: 10 mg Clopidogrel Bisulfate (Plavix) 75 mg PO DAILY [facility] Stop: 02/10/19 08:59 Last Admin: 12/20/18 08:13 Dose: 75 mg Divalproex Sodium (Depakote Dr) 250 mg PO BID [facility]; Protocol Stop: 02/10/19 08:59 Last Admin: 12/20/18 16:13 Dose: 250 mg Docusate Sodium (Colace) 100 mg PO BID [facility] Stop: 02/09/19 16:59 Last Admin: 12/20/18 16:13 Dose: 100 mg Donepezil HCl (Aricept) 10 mg PO DAILY [facility] Stop: 02/10/19 08:59 Last Admin: 12/20/18 08:12 Dose: 10 mg Lorazepam (Ativan) 0.5 mg PO Q4HR PRN; Protocol PRN Reason: anxiety Stop: 01/09/19 16:14 Last Admin: 12/19/18 09:17 Dose: 0.5 mg Magnesium Hydroxide (Milk Of Magnesia) 30 ml PO HS PRN PRN Reason: Constipation Multivitamins/Vitamin C (Theragran) 1 tab PO DAILY [facility] Stop: 02/09/19 08:59 Last Admin: 12/20/18 08:13 Dose: 1 tab Polyethylene Glycol (Miralax) 17 gm PO DAILY [facility] Stop: 02/10/19 08:59 Last Admin: 12/20/18 08:13 Dose: 17 gm Quetiapine Fumarate (Seroquel) 100 mg PO BID [facility]; Protocol Stop: 02/10/19 08:59 Last Admin: 12/20/18 16:13 Dose: 100 mg Senna (Senna) 8.6 mg PO HS [facility] Stop: 02/09/19 20:59 Last Admin: 12/20/18 21:20 Dose: 8.6 mg Tamsulosin HCl (Flomax) 0.4 mg PO HS [facility] Stop: 02/09/19 20:59 Last Admin: 12/20/18 21:20 Dose: 0.4 mg Zolpidem Tartrate (Ambien) 5 mg PO HS PRN PRN Reason: Insomnia Stop: 02/08/19 16:14 Last Admin: 12/20/18 21:48 Dose: 5 mg General: Alert, Oriented x3, No acute distress HEENT: Atraumatic, PERRLA, EOMI Neck: Supple Cardiovascular: Regular rate, Normal S1, Normal S2 Lungs: Clear to auscultation Abdomen: Bowel sounds, Soft Extremities: no Clubbing, no Cyanosis, no Edema Neurological: Normal gait Assessment/Plan - Assessment Assessment: psychosis Major Depression Dementia Dyslipidemia BPH Chronic constipation OA h/o CVA chronic back pain - Plan Plan: admit to [facility] continue home meds Nutritional Asmnt/Malnutr-PDOC - Dietary Evaluation Malnutrition Findings (Please click <Entered> for more info): Nutritional Asmnt/Malnutrition Start: 12/17/18 14: 08 Text: Status: Complete Freq: Protocol: Document 12/17/18 14:08 BOB (Rec: 12/17/18 14:10 BOB [id number]) Nutritional Asmnt/Malnutrition Patient General Information Nutritional Screening Low Risk Diagnosis Psychosis Pertinent Medical Hx/Surgical Hx Major depression, Dementia, Dyslipidemia, BPH, Chronic constipation, OA, CVA, Chronic Back Pain Subjective Information Pt is a 83-year-old male admitted on 12/10 from SNF d/t combative behavior. Pt speaks Romansh. Pt was prioritized as low risk to be seen on 12/16, Pt had discharge orders for and was leaving per RN, but SNF did not want the Pt back, so IA is being completed today. HT: 58 WT: 165 LB (75 kg) BMI: 25.09 (Overweight) GI: WNL, Soft, Non-tender BM: 12/16 x1 I/O: 240/1 (+239) Skin: WNL, Intact Juan: 18 Diet Order: Regular Estimated Energy Needs: ( Geriatric, CBW) 9379-8072 kcals (25-30 kcals/ kg) 75-90g Pro (1.0-1.2 g/kg) 7270-0510 ml (25-30 ml/kg) Pt is eating 75-100% of meals Per Meal/Nutrition Activity Record. Dietary is currently providing an estimated 2600 kcals and 120gm Pro, per Pt PO intake this is providing an estimated 2275 kcals and 105gm Pro to meet 100+% kcal and 100+% Pro needs. Current Diet Order/ Nutrition Support Regular Pertinent Medications Maalox (PRN), Lipitor, Colace, MOM (PRN), Theragran, Miralax , Senna, Flomax Pertinent Labs 12/04: Glucose 106, Alb 3.8 Nutritional Hx/Data Height 1.73 m Height (Calculated Centimeters) 172.7 Current Weight (lbs) 74.843 kg Weight (Calculated Kilograms) 74.8 Weight (Calculated Grams) 18238.7 [place] Body Weight 154 LB (70 kg) % [place] Body Weight 107 Body Mass Index (BMI) 25.0 Weight Status Overweight GI Symptoms GI Symptoms None Last BM 12/16 x1 Skin Integrity/Comment: Skin: WNL, Intact Juan: 18 Estimated Nutritional Goals BEE in Kcals: Using Current wt Calories/Kcals/Kg 25-30 Kcals Calculated 4591-4567 Protein: Using Current wt Protein g/k.0-1.2 Protein Calculated 75-90 Fluid: ml 9948-7702 ml (25-30 ml/kg) Nutritional Problem No current Nutrition Prob Problem No nutrition diagnosis at this time. Etiology n/a Signs/Symptoms: n/a Malnutrition Related to Morbid Obesity Malnutrition related to morbid obesity No Intervention/Recommendation Comments Continue with Regular diet as ordered. Expected Outcomes/Goals Expected Outcomes/Goals 1. PO intake to continue to meet 75% of nutritional needs. 2. Monitor PO intake, wt, nutrition related labs, and skin integrity. 3. F/U as low risk in 7 days, 12/24
[2018-12-21] MEDS: POLYETHYLENE GLYCOL 3350 17 GM PACK PO SCH (08:37)
[2018-12-21] MEDS: Multivitamin Tab PO SCH (08:37)
--- NOTE | 2018-12-21 19:19 | Progress Notes ---
DATE: 12/21/2018 SUBJECTIVE: The patient in the hospital, episodes of irritation, yelling at staff, seems disoriented, just says huong in [place] over and over again. We are trying to help him with placements. He cannot take care of himself, forgetful, confused, history of confusion in the past. Loud, noisy, pacing the hallway, yelling at this clinician on exam. Family are called and involved. Currently, we are trying to help him with placement. Medications were noted. We will continue to monitor. JOB# [id number]
[2018-12-21] MEDS: Atorvastatin Calcium 10 MG TAB PO SCH (21:45)
--- NOTE | 2018-12-22 07:58 | General Progress Note ---
Subjective - Review of Systems Service Date: 12/22/18 Subjective: Patient is awake, alert, afebrile VS T 97.6 P 62 R 18 BP 109/50 Objective - Results Result Diagrams: 12/04/18 21:30 12/04/18 21:30 Recent Labs: Laboratory Last Values WBC 5.7 Th/cmm (4.8-10.8) 12/04/18 21:30 RBC 4.58 Mil/cmm (3.80-5.80) 12/04/18 21:30 Hgb 13.9 gm/dL (12-16) 12/04/18 21:30 Hct 41.8 % (41.0-60) 12/04/18 21:30 MCV 91.3 fl (80-99) 12/04/18 21:30 MCH 30.4 pg (27.0-31.0) 12/04/18 21:30 MCHC Differential 33.3 pg (28.0-36.0) 12/04/18 21:30 RDW 11.3 % (11.5-20.0) L 12/04/18 21:30 Plt Count 286 Th/cmm (150-400) 12/04/18 21:30 MPV 8.4 fl 12/04/18 21:30 Neutrophils % 49.5 % (40.0-80.0) 12/04/18 21:30 Lymphocytes % 40.0 % (20.0-50.0) 12/04/18 21:30 Monocytes % 7.9 % (2.0-10.0) 12/04/18 21:30 Eosinophils % 2.6 % (0.0-5.0) 12/04/18 21:30 Basophils % 0.0 % (0.0-2.0) 12/04/18 21:30 Sodium 141 mEq/L (136-145) 12/04/18 21:30 Potassium 3.9 mEq/L (3.5-5.1) 12/04/18 21:30 Chloride 106 mEq/L (98-107) 12/04/18 21:30 Carbon Dioxide 26.3 mEq/L (21.0-31.0) 12/04/18 21:30 Anion Gap 12.6 (7.0-16.0) 12/04/18 21:30 BUN 19 mg/dL (7-25) 12/04/18 21:30 Creatinine 0.9 mg/dL (0.7-1.3) 12/04/18 21:30 Est GFR ( Amer) TNP 12/04/18 21:30 Est GFR (Non-Af Amer) TNP 12/04/18 21:30 BUN/Creatinine Ratio 21.1 12/04/18 21:30 Glucose 106 mg/dL (70-105) H 12/04/18 21:30 Calcium 9.1 mg/dL (8.6-10.3) 12/04/18 21:30 Total Bilirubin 0.5 mg/dL (0.3-1.0) 12/04/18 21:30 AST 14 U/L (13-39) 12/04/18 21:30 ALT 11 U/L (7-52) 12/04/18 21:30 Alkaline Phosphatase 52 U/L (34-104) 12/04/18 21:30 Total Protein 6.5 gm/dL (6.0-8.3) 12/04/18 21:30 Albumin 3.8 gm/dL (4.2-5.5) L 12/04/18 21:30 Globulin 2.7 gm/dL 12/04/18 21:30 Albumin/Globulin Ratio 1.4 (1.0-1.8) 12/04/18 21:30 - Physical Exam Vitals and I&O: Vital Signs Temp 97.6 F 12/22/18 06:30 Pulse 62 12/22/18 06:30 Resp 18 12/22/18 06:30 BP 109/50 12/22/18 06:30 Pulse Ox 97 12/22/18 06:30 Intake & Output 12/21/18 12/22/18 12/22/18 18:59 06:59 18:59 Intake Total 1000 1440 Output Total 1 Balance 1000 1439 Intake: Oral 1000 1440 Output: Urine/Stool Mix 1 Other: # Voids 4 1 # Bowel Movements 1 2 Active Medications: Current Medications Acetaminophen (Tylenol) 650 mg PO Q4HR PRN PRN Reason: Mild Pain / Temp above 100 Stop: 02/08/19 16:14 Last Admin: 12/15/18 15:12 Dose: 650 mg Al Hydrox/Mg Hydrox/Simethicone (Maalox) 30 ml PO Q4HR PRN PRN Reason: GI DISTRESS Stop: 02/08/19 16:14 Aspirin (Ecotrin) 81 mg PO DAILY [facility] Stop: 02/10/19 08:59 Last Admin: 12/21/18 08:37 Dose: 81 mg Atorvastatin Calcium (Lipitor) 10 mg PO HS [facility]; Protocol Stop: 02/09/19 20:59 Last Admin: 12/21/18 21:45 Dose: Not Given Clopidogrel Bisulfate (Plavix) 75 mg PO DAILY [facility] Stop: 02/10/19 08:59 Last Admin: 12/21/18 08:37 Dose: 75 mg Divalproex Sodium (Depakote Dr) 250 mg PO BID [facility]; Protocol Stop: 02/10/19 08:59 Last Admin: 12/21/18 16:51 Dose: 250 mg Docusate Sodium (Colace) 100 mg PO BID [facility] Stop: 02/09/19 16:59 Last Admin: 12/21/18 16:51 Dose: 100 mg Donepezil HCl (Aricept) 10 mg PO DAILY [facility] Stop: 02/10/19 08:59 Last Admin: 12/21/18 08:37 Dose: 10 mg Lorazepam (Ativan) 0.5 mg PO Q4HR PRN; Protocol PRN Reason: anxiety Stop: 01/09/19 16:14 Last Admin: 12/21/18 15:26 Dose: 0.5 mg Magnesium Hydroxide (Milk Of Magnesia) 30 ml PO HS PRN PRN Reason: Constipation Multivitamins/Vitamin C (Theragran) 1 tab PO DAILY [facility] Stop: 02/09/19 08:59 Last Admin: 12/21/18 08:37 Dose: 1 tab Polyethylene Glycol (Miralax) 17 gm PO DAILY [facility] Stop: 02/10/19 08:59 Last Admin: 12/21/18 08:37 Dose: 17 gm Quetiapine Fumarate (Seroquel) 100 mg PO BID [facility]; Protocol Stop: 02/10/19 08:59 Last Admin: 12/21/18 16:52 Dose: 100 mg Senna (Senna) 8.6 mg PO HS [facility] Stop: 02/09/19 20:59 Last Admin: 12/21/18 21:45 Dose: Not Given Tamsulosin HCl (Flomax) 0.4 mg PO HS [facility] Stop: 02/09/19 20:59 Last Admin: 12/21/18 21:45 Dose: Not Given Zolpidem Tartrate (Ambien) 5 mg PO HS PRN PRN Reason: Insomnia Stop: 02/08/19 16:14 Last Admin: 12/20/18 21:48 Dose: 5 mg General: Alert, Oriented x3, No acute distress HEENT: Atraumatic, PERRLA, EOMI Neck: Supple Cardiovascular: Regular rate, Normal S1, Normal S2 Lungs: Clear to auscultation Abdomen: Bowel sounds, Soft Extremities: no Clubbing, no Cyanosis, no Edema Neurological: Normal gait Assessment/Plan - Assessment Assessment: psychosis Major Depression Dementia Dyslipidemia BPH Chronic constipation OA h/o CVA chronic back pain - Plan Plan: admit to [facility] continue home meds Nutritional Asmnt/Malnutr-PDOC - Dietary Evaluation Malnutrition Findings (Please click <Entered> for more info): Nutritional Asmnt/Malnutrition Start: 12/17/18 14: 08 Text: Status: Complete Freq: Protocol: Document 12/17/18 14:08 BOB (Rec: 12/17/18 14:10 BOB [id number]) Nutritional Asmnt/Malnutrition Patient General Information Nutritional Screening Low Risk Diagnosis Psychosis Pertinent Medical Hx/Surgical Hx Major depression, Dementia, Dyslipidemia, BPH, Chronic constipation, OA, CVA, Chronic Back Pain Subjective Information Pt is a 83-year-old male admitted on 12/10 from SNF d/t combative behavior. Pt speaks Amharic. Pt was prioritized as low risk to be seen on 12/16, Pt had discharge orders for and was leaving per RN, but SNF did not want the Pt back, so IA is being completed today. HT: 58 WT: 165 LB (75 kg) BMI: 25.09 (Overweight) GI: WNL, Soft, Non-tender BM: 12/16 x1 I/O: 240/1 (+239) Skin: WNL, Intact Juan: 18 Diet Order: Regular Estimated Energy Needs: ( Geriatric, CBW) 8917-2991 kcals (25-30 kcals/ kg) 75-90g Pro (1.0-1.2 g/kg) 4526-2990 ml (25-30 ml/kg) Pt is eating 75-100% of meals Per Meal/Nutrition Activity Record. Dietary is currently providing an estimated 2600 kcals and 120gm Pro, per Pt PO intake this is providing an estimated 2275 kcals and 105gm Pro to meet 100+% kcal and 100+% Pro needs. Current Diet Order/ Nutrition Support Regular Pertinent Medications Maalox (PRN), Lipitor, Colace, MOM (PRN), Theragran, Miralax , Senna, Flomax Pertinent Labs 12/04: Glucose 106, Alb 3.8 Nutritional Hx/Data Height 1.73 m Height (Calculated Centimeters) 172.7 Current Weight (lbs) 74.843 kg Weight (Calculated Kilograms) 74.8 Weight (Calculated Grams) 34323.7 [place] Body Weight 154 LB (70 kg) % [place] Body Weight 107 Body Mass Index (BMI) 25.0 Weight Status Overweight GI Symptoms GI Symptoms None Last BM 12/16 x1 Skin Integrity/Comment: Skin: WNL, Intact Juan: 18 Estimated Nutritional Goals BEE in Kcals: Using Current wt Calories/Kcals/Kg 25-30 Kcals Calculated 5742-7863 Protein: Using Current wt Protein g/k.0-1.2 Protein Calculated 75-90 Fluid: ml 9634-6778 ml (25-30 ml/kg) Nutritional Problem No current Nutrition Prob Problem No nutrition diagnosis at this time. Etiology n/a Signs/Symptoms: n/a Malnutrition Related to Morbid Obesity Malnutrition related to morbid obesity No Intervention/Recommendation Comments Continue with Regular diet as ordered. Expected Outcomes/Goals Expected Outcomes/Goals 1. PO intake to continue to meet 75% of nutritional needs. 2. Monitor PO intake, wt, nutrition related labs, and skin integrity. 3. F/U as low risk in 7 days, 12/24
[2018-12-22] MEDS: POLYETHYLENE GLYCOL 3350 17 GM PACK PO SCH (09:09)
[2018-12-22] MEDS: Multivitamin Tab PO SCH (09:09)
--- NOTE | 2018-12-22 20:12 | Progress Notes ---
DATE: 12/22/2018 SUBJECTIVE: The patient slept for about 7 hours, paranoid, very guarded, not wanting to talk to me today. Essentially tells me to go away when I go see him, very impulsive, unpredictable, still loud, yelling, anxious, gets easily agitated, highly unpredictable, concerns for ongoing confusional state, hyperverbal, yells at others. ASSESSMENT: The patient unruly, hard to redirect control. PLAN: We will continue dosing of Seroquel. Vitals were noted. Medications were noted. Discussed with staff. JOB# [id number]
[2018-12-22] MEDS: Atorvastatin Calcium 10 MG TAB PO SCH (21:18)
[2018-12-23] MEDS: POLYETHYLENE GLYCOL 3350 17 GM PACK PO SCH (08:56)
[2018-12-23] MEDS: Multivitamin Tab PO SCH (08:56)
--- NOTE | 2018-12-23 09:30 | General Progress Note ---
Subjective - Review of Systems Service Date: 12/23/18 Subjective: Patient is awake, alert, afebrile VS T 97.6 P 76 R 20 BP 133/74 Objective - Results Result Diagrams: 12/04/18 21:30 12/04/18 21:30 Recent Labs: Laboratory Last Values WBC 5.7 Th/cmm (4.8-10.8) 12/04/18 21:30 RBC 4.58 Mil/cmm (3.80-5.80) 12/04/18 21:30 Hgb 13.9 gm/dL (12-16) 12/04/18 21:30 Hct 41.8 % (41.0-60) 12/04/18 21:30 MCV 91.3 fl (80-99) 12/04/18 21:30 MCH 30.4 pg (27.0-31.0) 12/04/18 21:30 MCHC Differential 33.3 pg (28.0-36.0) 12/04/18 21:30 RDW 11.3 % (11.5-20.0) L 12/04/18 21:30 Plt Count 286 Th/cmm (150-400) 12/04/18 21:30 MPV 8.4 fl 12/04/18 21:30 Neutrophils % 49.5 % (40.0-80.0) 12/04/18 21:30 Lymphocytes % 40.0 % (20.0-50.0) 12/04/18 21:30 Monocytes % 7.9 % (2.0-10.0) 12/04/18 21:30 Eosinophils % 2.6 % (0.0-5.0) 12/04/18 21:30 Basophils % 0.0 % (0.0-2.0) 12/04/18 21:30 Sodium 141 mEq/L (136-145) 12/04/18 21:30 Potassium 3.9 mEq/L (3.5-5.1) 12/04/18 21:30 Chloride 106 mEq/L (98-107) 12/04/18 21:30 Carbon Dioxide 26.3 mEq/L (21.0-31.0) 12/04/18 21:30 Anion Gap 12.6 (7.0-16.0) 12/04/18 21:30 BUN 19 mg/dL (7-25) 12/04/18 21:30 Creatinine 0.9 mg/dL (0.7-1.3) 12/04/18 21:30 Est GFR ( Amer) TNP 12/04/18 21:30 Est GFR (Non-Af Amer) TNP 12/04/18 21:30 BUN/Creatinine Ratio 21.1 12/04/18 21:30 Glucose 106 mg/dL (70-105) H 12/04/18 21:30 Calcium 9.1 mg/dL (8.6-10.3) 12/04/18 21:30 Total Bilirubin 0.5 mg/dL (0.3-1.0) 12/04/18 21:30 AST 14 U/L (13-39) 12/04/18 21:30 ALT 11 U/L (7-52) 12/04/18 21:30 Alkaline Phosphatase 52 U/L (34-104) 12/04/18 21:30 Total Protein 6.5 gm/dL (6.0-8.3) 12/04/18 21:30 Albumin 3.8 gm/dL (4.2-5.5) L 12/04/18 21:30 Globulin 2.7 gm/dL 12/04/18 21:30 Albumin/Globulin Ratio 1.4 (1.0-1.8) 12/04/18 21:30 - Physical Exam Vitals and I&O: Vital Signs Temp 97.6 F 12/23/18 06:16 Pulse 76 12/23/18 06:16 Resp 20 12/23/18 08:00 BP 133/74 12/23/18 06:16 Pulse Ox 96 12/23/18 06:16 Intake & Output 12/22/18 12/23/18 12/23/18 18:59 06:59 18:59 Intake Total 800 360 Balance 800 360 Intake: Oral 800 360 Other: # Voids 3 1 # Bowel Movements 0 1 Active Medications: Current Medications Acetaminophen (Tylenol) 650 mg PO Q4HR PRN PRN Reason: Mild Pain / Temp above 100 Stop: 02/08/19 16:14 Last Admin: 12/15/18 15:12 Dose: 650 mg Al Hydrox/Mg Hydrox/Simethicone (Maalox) 30 ml PO Q4HR PRN PRN Reason: GI DISTRESS Stop: 02/08/19 16:14 Aspirin (Ecotrin) 81 mg PO DAILY [facility] Stop: 02/10/19 08:59 Last Admin: 12/23/18 08:56 Dose: 81 mg Atorvastatin Calcium (Lipitor) 10 mg PO HS [facility]; Protocol Stop: 02/09/19 20:59 Last Admin: 12/22/18 21:18 Dose: 10 mg Clopidogrel Bisulfate (Plavix) 75 mg PO DAILY [facility] Stop: 02/10/19 08:59 Last Admin: 12/23/18 08:56 Dose: 75 mg Divalproex Sodium (Depakote Dr) 250 mg PO BID [facility]; Protocol Stop: 02/10/19 08:59 Last Admin: 12/23/18 08:56 Dose: 250 mg Docusate Sodium (Colace) 100 mg PO BID [facility] Stop: 02/09/19 16:59 Last Admin: 12/23/18 08:56 Dose: 100 mg Donepezil HCl (Aricept) 10 mg PO DAILY [facility] Stop: 02/10/19 08:59 Last Admin: 12/23/18 08:56 Dose: 10 mg Lorazepam (Ativan) 0.5 mg PO Q4HR PRN; Protocol PRN Reason: anxiety Stop: 01/09/19 16:14 Last Admin: 12/22/18 21:19 Dose: 0.5 mg Magnesium Hydroxide (Milk Of Magnesia) 30 ml PO HS PRN PRN Reason: Constipation Multivitamins/Vitamin C (Theragran) 1 tab PO DAILY [facility] Stop: 02/09/19 08:59 Last Admin: 12/23/18 08:56 Dose: 1 tab Polyethylene Glycol (Miralax) 17 gm PO DAILY [facility] Stop: 02/10/19 08:59 Last Admin: 12/23/18 08:56 Dose: 17 gm Quetiapine Fumarate (Seroquel) 100 mg PO BID [facility]; Protocol Stop: 02/10/19 08:59 Last Admin: 12/23/18 08:56 Dose: 100 mg Senna (Senna) 8.6 mg PO HS [facility] Stop: 02/09/19 20:59 Last Admin: 12/22/18 21:18 Dose: 8.6 mg Tamsulosin HCl (Flomax) 0.4 mg PO HS [facility] Stop: 02/09/19 20:59 Last Admin: 12/22/18 21:18 Dose: 0.4 mg Zolpidem Tartrate (Ambien) 5 mg PO HS PRN PRN Reason: Insomnia Stop: 02/08/19 16:14 Last Admin: 12/22/18 22:30 Dose: 5 mg General: Alert, Oriented x3, No acute distress HEENT: Atraumatic, PERRLA, EOMI Neck: Supple Cardiovascular: Regular rate, Normal S1, Normal S2 Lungs: Clear to auscultation Abdomen: Bowel sounds, Soft Extremities: no Clubbing, no Cyanosis, no Edema Neurological: Normal gait Assessment/Plan - Assessment Assessment: psychosis Major Depression Dementia Dyslipidemia BPH Chronic constipation OA h/o CVA chronic back pain - Plan Plan: admit to [facility] continue home meds Nutritional Asmnt/Malnutr-PDOC - Dietary Evaluation Malnutrition Findings (Please click <Entered> for more info): Nutritional Asmnt/Malnutrition Start: 12/17/18 14: 08 Text: Status: Complete Freq: Protocol: Document 12/17/18 14:08 BOB (Rec: 12/17/18 14:10 BOB [email or web address]) Nutritional Asmnt/Malnutrition Patient General Information Nutritional Screening Low Risk Diagnosis Psychosis Pertinent Medical Hx/Surgical Hx Major depression, Dementia, Dyslipidemia, BPH, Chronic constipation, OA, CVA, Chronic Back Pain Subjective Information Pt is a 83-year-old male admitted on 12/10 from SNF d/t combative behavior. Pt speaks Polish. Pt was prioritized as low risk to be seen on 12/16, Pt had discharge orders for and was leaving per RN, but SNF did not want the Pt back, so IA is being completed today. HT: 58 WT: 165 LB (75 kg) BMI: 25.09 (Overweight) GI: WNL, Soft, Non-tender BM: 12/16 x1 I/O: 240/1 (+239) Skin: WNL, Intact Juan: 18 Diet Order: Regular Estimated Energy Needs: ( Geriatric, CBW) 2837-6040 kcals (25-30 kcals/ kg) 75-90g Pro (1.0-1.2 g/kg) 4384-5436 ml (25-30 ml/kg) Pt is eating 75-100% of meals Per Meal/Nutrition Activity Record. Dietary is currently providing an estimated 2600 kcals and 120gm Pro, per Pt PO intake this is providing an estimated 2275 kcals and 105gm Pro to meet 100+% kcal and 100+% Pro needs. Current Diet Order/ Nutrition Support Regular Pertinent Medications Maalox (PRN), Lipitor, Colace, MOM (PRN), Theragran, Miralax , Senna, Flomax Pertinent Labs 12/04: Glucose 106, Alb 3.8 Nutritional Hx/Data Height 1.73 m Height (Calculated Centimeters) 172.7 Current Weight (lbs) 74.843 kg Weight (Calculated Kilograms) 74.8 Weight (Calculated Grams) 86851.7 [place] Body Weight 154 LB (70 kg) % [place] Body Weight 107 Body Mass Index (BMI) 25.0 Weight Status Overweight GI Symptoms GI Symptoms None Last BM 12/16 x1 Skin Integrity/Comment: Skin: WNL, Intact Juan: 18 Estimated Nutritional Goals BEE in Kcals: Using Current wt Calories/Kcals/Kg 25-30 Kcals Calculated 6279-0086 Protein: Using Current wt Protein g/k.0-1.2 Protein Calculated 75-90 Fluid: ml 9505-9203 ml (25-30 ml/kg) Nutritional Problem No current Nutrition Prob Problem No nutrition diagnosis at this time. Etiology n/a Signs/Symptoms: n/a Malnutrition Related to Morbid Obesity Malnutrition related to morbid obesity No Intervention/Recommendation Comments Continue with Regular diet as ordered. Expected Outcomes/Goals Expected Outcomes/Goals 1. PO intake to continue to meet 75% of nutritional needs. 2. Monitor PO intake, wt, nutrition related labs, and skin integrity. 3. F/U as low risk in 7 days, 12/24
--- NOTE | 2018-12-23 16:35 | Progress Notes ---
DATE: 12/23/2018 SUBJECTIVE: The patient slept for about 8 hours last night. Poor orientation, still yelling, confused, noted to be disoriented, easily agitated, yelling and seems to be talking to himself. The patient is touching other people and trying to touch others, ongoing aggression and behavioral disturbances. Very poor boundaries. Medications were noted including dosages, frequencies. ASSESSMENT: The patient remains symptomatic as noted, ongoing behaviors. Still irritated, yelling at staff, screaming at staff. PLAN: We will continue to monitor. Per social sciences research scientist note, the patient may be going to a different retirement or not quite sure yet. JOB# [id number]
[2018-12-23] MEDS: Atorvastatin Calcium 10 MG TAB PO SCH (21:21)
--- NOTE | 2018-12-24 08:04 | General Progress Note ---
Subjective - Review of Systems Service Date: 12/24/18 Subjective: Patient is awake, alert, afebrile VS T 97.3 P 93 R 18 BP 92/55 Objective - Results Result Diagrams: 12/04/18 21:30 12/04/18 21:30 Recent Labs: Laboratory Last Values WBC 5.7 Th/cmm (4.8-10.8) 12/04/18 21:30 RBC 4.58 Mil/cmm (3.80-5.80) 12/04/18 21:30 Hgb 13.9 gm/dL (12-16) 12/04/18 21:30 Hct 41.8 % (41.0-60) 12/04/18 21:30 MCV 91.3 fl (80-99) 12/04/18 21:30 MCH 30.4 pg (27.0-31.0) 12/04/18 21:30 MCHC Differential 33.3 pg (28.0-36.0) 12/04/18 21:30 RDW 11.3 % (11.5-20.0) L 12/04/18 21:30 Plt Count 286 Th/cmm (150-400) 12/04/18 21:30 MPV 8.4 fl 12/04/18 21:30 Neutrophils % 49.5 % (40.0-80.0) 12/04/18 21:30 Lymphocytes % 40.0 % (20.0-50.0) 12/04/18 21:30 Monocytes % 7.9 % (2.0-10.0) 12/04/18 21:30 Eosinophils % 2.6 % (0.0-5.0) 12/04/18 21:30 Basophils % 0.0 % (0.0-2.0) 12/04/18 21:30 Sodium 141 mEq/L (136-145) 12/04/18 21:30 Potassium 3.9 mEq/L (3.5-5.1) 12/04/18 21:30 Chloride 106 mEq/L (98-107) 12/04/18 21:30 Carbon Dioxide 26.3 mEq/L (21.0-31.0) 12/04/18 21:30 Anion Gap 12.6 (7.0-16.0) 12/04/18 21:30 BUN 19 mg/dL (7-25) 12/04/18 21:30 Creatinine 0.9 mg/dL (0.7-1.3) 12/04/18 21:30 Est GFR ( Amer) TNP 12/04/18 21:30 Est GFR (Non-Af Amer) TNP 12/04/18 21:30 BUN/Creatinine Ratio 21.1 12/04/18 21:30 Glucose 106 mg/dL (70-105) H 12/04/18 21:30 Calcium 9.1 mg/dL (8.6-10.3) 12/04/18 21:30 Total Bilirubin 0.5 mg/dL (0.3-1.0) 12/04/18 21:30 AST 14 U/L (13-39) 12/04/18 21:30 ALT 11 U/L (7-52) 12/04/18 21:30 Alkaline Phosphatase 52 U/L (34-104) 12/04/18 21:30 Total Protein 6.5 gm/dL (6.0-8.3) 12/04/18 21:30 Albumin 3.8 gm/dL (4.2-5.5) L 12/04/18 21:30 Globulin 2.7 gm/dL 12/04/18 21:30 Albumin/Globulin Ratio 1.4 (1.0-1.8) 12/04/18 21:30 - Physical Exam Vitals and I&O: Vital Signs Temp 97.3 F 12/23/18 14:13 Pulse 93 12/23/18 14:13 Resp 20 12/23/18 20:00 BP 92/55 12/23/18 14:13 Pulse Ox 92 12/23/18 14:13 Intake & Output 12/23/18 12/24/18 12/24/18 18:59 06:59 18:59 Intake Total 120 Balance 120 Intake: Oral 120 Other: # Voids 3 3 # Bowel Movements 1 0 Active Medications: Current Medications Acetaminophen (Tylenol) 650 mg PO Q4HR PRN PRN Reason: Mild Pain / Temp above 100 Stop: 02/08/19 16:14 Last Admin: 12/23/18 12:01 Dose: 650 mg Al Hydrox/Mg Hydrox/Simethicone (Maalox) 30 ml PO Q4HR PRN PRN Reason: GI DISTRESS Stop: 02/08/19 16:14 Aspirin (Ecotrin) 81 mg PO DAILY [facility] Stop: 02/10/19 08:59 Last Admin: 12/23/18 08:56 Dose: 81 mg Atorvastatin Calcium (Lipitor) 10 mg PO HS [facility]; Protocol Stop: 02/09/19 20:59 Last Admin: 12/23/18 21:21 Dose: 10 mg Clopidogrel Bisulfate (Plavix) 75 mg PO DAILY [facility] Stop: 02/10/19 08:59 Last Admin: 12/23/18 08:56 Dose: 75 mg Divalproex Sodium (Depakote Dr) 250 mg PO BID [facility]; Protocol Stop: 02/10/19 08:59 Last Admin: 12/23/18 17:00 Dose: 250 mg Docusate Sodium (Colace) 100 mg PO BID [facility] Stop: 02/09/19 16:59 Last Admin: 12/23/18 17:00 Dose: 100 mg Donepezil HCl (Aricept) 10 mg PO DAILY [facility] Stop: 02/10/19 08:59 Last Admin: 12/23/18 08:56 Dose: 10 mg Lorazepam (Ativan) 0.5 mg PO Q4HR PRN; Protocol PRN Reason: anxiety Stop: 01/09/19 16:14 Last Admin: 12/23/18 12:02 Dose: 0.5 mg Magnesium Hydroxide (Milk Of Magnesia) 30 ml PO HS PRN PRN Reason: Constipation Multivitamins/Vitamin C (Theragran) 1 tab PO DAILY [facility] Stop: 02/09/19 08:59 Last Admin: 12/23/18 08:56 Dose: 1 tab Polyethylene Glycol (Miralax) 17 gm PO DAILY [facility] Stop: 02/10/19 08:59 Last Admin: 12/23/18 08:56 Dose: 17 gm Quetiapine Fumarate (Seroquel) 100 mg PO BID [facility]; Protocol Stop: 02/10/19 08:59 Last Admin: 12/23/18 17:00 Dose: 100 mg Senna (Senna) 8.6 mg PO HS [facility] Stop: 02/09/19 20:59 Last Admin: 12/23/18 21:21 Dose: 8.6 mg Tamsulosin HCl (Flomax) 0.4 mg PO HS [facility] Stop: 02/09/19 20:59 Last Admin: 12/23/18 21:21 Dose: 0.4 mg Zolpidem Tartrate (Ambien) 5 mg PO HS PRN PRN Reason: Insomnia Stop: 02/08/19 16:14 Last Admin: 12/23/18 21:21 Dose: 5 mg General: Alert, Oriented x3, No acute distress HEENT: Atraumatic, PERRLA, EOMI Neck: Supple Cardiovascular: Regular rate, Normal S1, Normal S2 Lungs: Clear to auscultation Abdomen: Bowel sounds, Soft Extremities: no Clubbing, no Cyanosis, no Edema Neurological: Normal gait Assessment/Plan - Assessment Assessment: psychosis Major Depression Dementia Dyslipidemia BPH Chronic constipation OA h/o CVA chronic back pain - Plan Plan: admit to [facility] continue home meds Nutritional Asmnt/Malnutr-PDOC - Dietary Evaluation Malnutrition Findings (Please click <Entered> for more info): Nutritional Asmnt/Malnutrition Start: 12/17/18 14: 08 Text: Status: Complete Freq: Protocol: Document 12/17/18 14:08 BOB (Rec: 12/17/18 14:10 BOB [id number]) Nutritional Asmnt/Malnutrition Patient General Information Nutritional Screening Low Risk Diagnosis Psychosis Pertinent Medical Hx/Surgical Hx Major depression, Dementia, Dyslipidemia, BPH, Chronic constipation, OA, CVA, Chronic Back Pain Subjective Information Pt is a 83-year-old male admitted on 12/10 from SNF d/t combative behavior. Pt speaks Yi. Pt was prioritized as low risk to be seen on 12/16, Pt had discharge orders for and was leaving per RN, but SNF did not want the Pt back, so IA is being completed today. HT: 58 WT: 165 LB (75 kg) BMI: 25.09 (Overweight) GI: WNL, Soft, Non-tender BM: 12/16 x1 I/O: 240/1 (+239) Skin: WNL, Intact Jaun: 18 Diet Order: Regular Estimated Energy Needs: ( Geriatric, CBW) 0649-5680 kcals (25-30 kcals/ kg) 75-90g Pro (1.0-1.2 g/kg) 1489-7843 ml (25-30 ml/kg) Pt is eating 75-100% of meals Per Meal/Nutrition Activity Record. Dietary is currently providing an estimated 2600 kcals and 120gm Pro, per Pt PO intake this is providing an estimated 2275 kcals and 105gm Pro to meet 100+% kcal and 100+% Pro needs. Current Diet Order/ Nutrition Support Regular Pertinent Medications Maalox (PRN), Lipitor, Colace, MOM (PRN), Theragran, Miralax , Senna, Flomax Pertinent Labs 12/04: Glucose 106, Alb 3.8 Nutritional Hx/Data Height 1.73 m Height (Calculated Centimeters) 172.7 Current Weight (lbs) 74.843 kg Weight (Calculated Kilograms) 74.8 Weight (Calculated Grams) 83520.7 [place] Body Weight 154 LB (70 kg) % [place] Body Weight 107 Body Mass Index (BMI) 25.0 Weight Status Overweight GI Symptoms GI Symptoms None Last BM 12/16 x1 Skin Integrity/Comment: Skin: WNL, Intact Juan: 18 Estimated Nutritional Goals BEE in Kcals: Using Current wt Calories/Kcals/Kg 25-30 Kcals Calculated 2457-9001 Protein: Using Current wt Protein g/k.0-1.2 Protein Calculated 75-90 Fluid: ml 6314-0477 ml (25-30 ml/kg) Nutritional Problem No current Nutrition Prob Problem No nutrition diagnosis at this time. Etiology n/a Signs/Symptoms: n/a Malnutrition Related to Morbid Obesity Malnutrition related to morbid obesity No Intervention/Recommendation Comments Continue with Regular diet as ordered. Expected Outcomes/Goals Expected Outcomes/Goals 1. PO intake to continue to meet 75% of nutritional needs. 2. Monitor PO intake, wt, nutrition related labs, and skin integrity. 3. F/U as low risk in 7 days, 12/24
[2018-12-24] MEDS: POLYETHYLENE GLYCOL 3350 17 GM PACK PO SCH (09:37)
[2018-12-24] MEDS: Multivitamin Tab PO SCH (09:37)
[2018-12-24] MEDS: Atorvastatin Calcium 10 MG TAB PO SCH (21:09)
--- NOTE | 2018-12-25 08:01 | General Progress Note ---
Subjective - Review of Systems Service Date: 12/25/18 Subjective: Patient is awake, alert, afebrile VS T 98.4 P 57 R 20 BP 152/74 Objective - Results Result Diagrams: 12/04/18 21:30 12/04/18 21:30 Recent Labs: Laboratory Last Values WBC 5.7 Th/cmm (4.8-10.8) 12/04/18 21:30 RBC 4.58 Mil/cmm (3.80-5.80) 12/04/18 21:30 Hgb 13.9 gm/dL (12-16) 12/04/18 21:30 Hct 41.8 % (41.0-60) 12/04/18 21:30 MCV 91.3 fl (80-99) 12/04/18 21:30 MCH 30.4 pg (27.0-31.0) 12/04/18 21:30 MCHC Differential 33.3 pg (28.0-36.0) 12/04/18 21:30 RDW 11.3 % (11.5-20.0) L 12/04/18 21:30 Plt Count 286 Th/cmm (150-400) 12/04/18 21:30 MPV 8.4 fl 12/04/18 21:30 Neutrophils % 49.5 % (40.0-80.0) 12/04/18 21:30 Lymphocytes % 40.0 % (20.0-50.0) 12/04/18 21:30 Monocytes % 7.9 % (2.0-10.0) 12/04/18 21:30 Eosinophils % 2.6 % (0.0-5.0) 12/04/18 21:30 Basophils % 0.0 % (0.0-2.0) 12/04/18 21:30 Sodium 141 mEq/L (136-145) 12/04/18 21:30 Potassium 3.9 mEq/L (3.5-5.1) 12/04/18 21:30 Chloride 106 mEq/L (98-107) 12/04/18 21:30 Carbon Dioxide 26.3 mEq/L (21.0-31.0) 12/04/18 21:30 Anion Gap 12.6 (7.0-16.0) 12/04/18 21:30 BUN 19 mg/dL (7-25) 12/04/18 21:30 Creatinine 0.9 mg/dL (0.7-1.3) 12/04/18 21:30 Est GFR ( Amer) TNP 12/04/18 21:30 Est GFR (Non-Af Amer) TNP 12/04/18 21:30 BUN/Creatinine Ratio 21.1 12/04/18 21:30 Glucose 106 mg/dL (70-105) H 12/04/18 21:30 Calcium 9.1 mg/dL (8.6-10.3) 12/04/18 21:30 Total Bilirubin 0.5 mg/dL (0.3-1.0) 12/04/18 21:30 AST 14 U/L (13-39) 12/04/18 21:30 ALT 11 U/L (7-52) 12/04/18 21:30 Alkaline Phosphatase 52 U/L (34-104) 12/04/18 21:30 Total Protein 6.5 gm/dL (6.0-8.3) 12/04/18 21:30 Albumin 3.8 gm/dL (4.2-5.5) L 12/04/18 21:30 Globulin 2.7 gm/dL 12/04/18 21:30 Albumin/Globulin Ratio 1.4 (1.0-1.8) 12/04/18 21:30 - Physical Exam Vitals and I&O: Vital Signs Temp 98.4 F 12/25/18 06:44 Pulse 57 12/25/18 06:44 Resp 20 12/25/18 06:44 BP 152/74 12/25/18 06:44 Pulse Ox 94 12/25/18 06:44 Intake & Output 12/24/18 12/25/18 12/25/18 18:59 06:59 18:59 Intake Total 240 Balance 240 Weight (lbs) 74.843 kg Intake: Oral 240 Other: # Voids 3 # Bowel Movements 0 Weight Source Bedscale Active Medications: Current Medications Acetaminophen (Tylenol) 650 mg PO Q4HR PRN PRN Reason: Mild Pain / Temp above 100 Stop: 02/08/19 16:14 Last Admin: 12/23/18 12:01 Dose: 650 mg Al Hydrox/Mg Hydrox/Simethicone (Maalox) 30 ml PO Q4HR PRN PRN Reason: GI DISTRESS Stop: 02/08/19 16:14 Aspirin (Ecotrin) 81 mg PO DAILY [facility] Stop: 02/10/19 08:59 Last Admin: 12/24/18 09:37 Dose: 81 mg Atorvastatin Calcium (Lipitor) 10 mg PO HS [facility]; Protocol Stop: 02/09/19 20:59 Last Admin: 12/24/18 21:09 Dose: 10 mg Clopidogrel Bisulfate (Plavix) 75 mg PO DAILY [facility] Stop: 02/10/19 08:59 Last Admin: 12/24/18 09:36 Dose: 75 mg Divalproex Sodium (Depakote Dr) 250 mg PO BID [facility]; Protocol Stop: 02/10/19 08:59 Last Admin: 12/24/18 17:15 Dose: 250 mg Docusate Sodium (Colace) 100 mg PO BID [facility] Stop: 02/09/19 16:59 Last Admin: 12/24/18 17:15 Dose: 100 mg Donepezil HCl (Aricept) 10 mg PO DAILY [facility] Stop: 02/10/19 08:59 Last Admin: 12/24/18 09:36 Dose: 10 mg Lorazepam (Ativan) 0.5 mg PO Q4HR PRN; Protocol PRN Reason: anxiety Stop: 01/09/19 16:14 Last Admin: 12/23/18 12:02 Dose: 0.5 mg Magnesium Hydroxide (Milk Of Magnesia) 30 ml PO HS PRN PRN Reason: Constipation Multivitamins/Vitamin C (Theragran) 1 tab PO DAILY [facility] Stop: 02/09/19 08:59 Last Admin: 12/24/18 09:37 Dose: 1 tab Polyethylene Glycol (Miralax) 17 gm PO DAILY [facility] Stop: 02/10/19 08:59 Last Admin: 12/24/18 09:37 Dose: 17 gm Quetiapine Fumarate 100 mg/ (Quetiapine Fumarate 25 mg) 125 mg PO BID [facility] Stop: 02/22/19 16:59 Last Admin: 12/24/18 17:15 Dose: 125 mg Senna (Senna) 8.6 mg PO HS [facility] Stop: 02/09/19 20:59 Last Admin: 12/24/18 21:10 Dose: 8.6 mg Tamsulosin HCl (Flomax) 0.4 mg PO HS [facility] Stop: 02/09/19 20:59 Last Admin: 12/24/18 21:10 Dose: 0.4 mg Zolpidem Tartrate (Ambien) 5 mg PO HS PRN PRN Reason: Insomnia Stop: 02/08/19 16:14 Last Admin: 12/24/18 21:10 Dose: 5 mg General: Alert, Oriented x3, No acute distress HEENT: Atraumatic, PERRLA, EOMI Neck: Supple Cardiovascular: Regular rate, Normal S1, Normal S2 Lungs: Clear to auscultation Abdomen: Bowel sounds, Soft Extremities: no Clubbing, no Cyanosis, no Edema Neurological: Normal gait Assessment/Plan - Assessment Assessment: psychosis Major Depression Dementia Dyslipidemia BPH Chronic constipation OA h/o CVA chronic back pain - Plan Plan: admit to [facility] home meds Nutritional Asmnt/Malnutr-PDOC - Dietary Evaluation Malnutrition Findings (Please click <Entered> for more info): Nutritional Asmnt/Malnutrition Start: 12/17/18 14: 08 Text: Status: Complete Freq: Protocol: Document 12/17/18 14:08 BOB (Rec: 12/17/18 14:10 BOB [email or web address]) Nutritional Asmnt/Malnutrition Patient General Information Nutritional Screening Low Risk Diagnosis Psychosis Pertinent Medical Hx/Surgical Hx Major depression, Dementia, Dyslipidemia, BPH, Chronic constipation, OA, CVA, Chronic Back Pain Subjective Information Pt is a 83-year-old male admitted on 12/10 from SNF d/t combative behavior. Pt speaks [place]ian. Pt was prioritized as low risk to be seen on 12/16, Pt had discharge orders for and was leaving per RN, but SNF did not want the Pt back, so IA is being completed today. HT: 58 WT: 165 LB (75 kg) BMI: 25.09 (Overweight) GI: WNL, Soft, Non-tender BM: 12/16 x1 I/O: 240/1 (+239) Skin: WNL, Intact Juan: 18 Diet Order: Regular Estimated Energy Needs: ( Geriatric, CBW) 9593-4671 kcals (25-30 kcals/ kg) 75-90g Pro (1.0-1.2 g/kg) 1380-4900 ml (25-30 ml/kg) Pt is eating 75-100% of meals Per Meal/Nutrition Activity Record. Dietary is currently providing an estimated 2600 kcals and 120gm Pro, per Pt PO intake this is providing an estimated 2275 kcals and 105gm Pro to meet 100+% kcal and 100+% Pro needs. Current Diet Order/ Nutrition Support Regular Pertinent Medications Maalox (PRN), Lipitor, Colace, MOM (PRN), Theragran, Miralax , Senna, Flomax Pertinent Labs 12/04: Glucose 106, Alb 3.8 Nutritional Hx/Data Height 1.73 m Height (Calculated Centimeters) 172.7 Current Weight (lbs) 74.843 kg Weight (Calculated Kilograms) 74.8 Weight (Calculated Grams) 58844.7 [place] Body Weight 154 LB (70 kg) % [place] Body Weight 107 Body Mass Index (BMI) 25.0 Weight Status Overweight GI Symptoms GI Symptoms None Last BM 12/16 x1 Skin Integrity/Comment: Skin: WNL, Intact Juan: 18 Estimated Nutritional Goals BEE in Kcals: Using Current wt Calories/Kcals/Kg 25-30 Kcals Calculated 9956-9620 Protein: Using Current wt Protein g/k.0-1.2 Protein Calculated 75-90 Fluid: ml 3633-3874 ml (25-30 ml/kg) Nutritional Problem No current Nutrition Prob Problem No nutrition diagnosis at this time. Etiology n/a Signs/Symptoms: n/a Malnutrition Related to Morbid Obesity Malnutrition related to morbid obesity No Intervention/Recommendation Comments Continue with Regular diet as ordered. Expected Outcomes/Goals Expected Outcomes/Goals 1. PO intake to continue to meet 75% of nutritional needs. 2. Monitor PO intake, wt, nutrition related labs, and skin integrity. 3. F/U as low risk in 7 days, 12/24
[2018-12-25] MEDS: Multivitamin Tab PO SCH (09:04)
[2018-12-25] MEDS: POLYETHYLENE GLYCOL 3350 17 GM PACK PO SCH (09:07)
--- NOTE | 2018-12-25 09:27 | Progress Notes ---
DATE: 12/24/2018 The patient is currently in the hospital, bizarre, "saying how are you, let me go," "very good." Still yelling, making some bizarre statements, "I am here to see you, give some nice ____," not really making much sense, ongoing behavioral disturbances, yelling and screaming. We are trying to find a place to go and has been difficult because of his ongoing behaviors, disorientation. We are watching him closely. We will continue to monitor and continue doses of Seroquel. We will titrate slowly. I will be increasing his doses today to try to target his ongoing symptoms. JOB# [id number]
[2018-12-25] MEDS: Atorvastatin Calcium 10 MG TAB PO SCH (21:10)
--- NOTE | 2018-12-25 23:33 | Progress Notes ---
DATE: 12/25/2018 SUBJECTIVE: The patient is still yelling, screaming at times, oriented to self only, confused, withdrawn, anxious, still easily agitated, likely approaching his baseline. We are trying to find a place to go, has been somewhat challenging. He is pretty confused, disoriented, I wanted to go and talk to me, he does not want to talk to me, sleeping, arousable, but then closes his eyes, still somewhat azar, irritable continue to monitor. The patient cannot take care of his basic needs and needs help with placement. JOB# [id number]
--- NOTE | 2018-12-26 07:59 | General Progress Note ---
Subjective - Review of Systems Service Date: 12/26/18 Subjective: Patient is awake, alert, afebrile VS T 98.6 P 79 R 19 BP 120/65 Objective - Results Result Diagrams: 12/04/18 21:30 12/04/18 21:30 Recent Labs: Laboratory Last Values WBC 5.7 Th/cmm (4.8-10.8) 12/04/18 21:30 RBC 4.58 Mil/cmm (3.80-5.80) 12/04/18 21:30 Hgb 13.9 gm/dL (12-16) 12/04/18 21:30 Hct 41.8 % (41.0-60) 12/04/18 21:30 MCV 91.3 fl (80-99) 12/04/18 21:30 MCH 30.4 pg (27.0-31.0) 12/04/18 21:30 MCHC Differential 33.3 pg (28.0-36.0) 12/04/18 21:30 RDW 11.3 % (11.5-20.0) L 12/04/18 21:30 Plt Count 286 Th/cmm (150-400) 12/04/18 21:30 MPV 8.4 fl 12/04/18 21:30 Neutrophils % 49.5 % (40.0-80.0) 12/04/18 21:30 Lymphocytes % 40.0 % (20.0-50.0) 12/04/18 21:30 Monocytes % 7.9 % (2.0-10.0) 12/04/18 21:30 Eosinophils % 2.6 % (0.0-5.0) 12/04/18 21:30 Basophils % 0.0 % (0.0-2.0) 12/04/18 21:30 Sodium 141 mEq/L (136-145) 12/04/18 21:30 Potassium 3.9 mEq/L (3.5-5.1) 12/04/18 21:30 Chloride 106 mEq/L (98-107) 12/04/18 21:30 Carbon Dioxide 26.3 mEq/L (21.0-31.0) 12/04/18 21:30 Anion Gap 12.6 (7.0-16.0) 12/04/18 21:30 BUN 19 mg/dL (7-25) 12/04/18 21:30 Creatinine 0.9 mg/dL (0.7-1.3) 12/04/18 21:30 Est GFR ( Amer) TNP 12/04/18 21:30 Est GFR (Non-Af Amer) TNP 12/04/18 21:30 BUN/Creatinine Ratio 21.1 12/04/18 21:30 Glucose 106 mg/dL (70-105) H 12/04/18 21:30 Calcium 9.1 mg/dL (8.6-10.3) 12/04/18 21:30 Total Bilirubin 0.5 mg/dL (0.3-1.0) 12/04/18 21:30 AST 14 U/L (13-39) 12/04/18 21:30 ALT 11 U/L (7-52) 12/04/18 21:30 Alkaline Phosphatase 52 U/L (34-104) 12/04/18 21:30 Total Protein 6.5 gm/dL (6.0-8.3) 12/04/18 21:30 Albumin 3.8 gm/dL (4.2-5.5) L 12/04/18 21:30 Globulin 2.7 gm/dL 12/04/18 21:30 Albumin/Globulin Ratio 1.4 (1.0-1.8) 12/04/18 21:30 - Physical Exam Vitals and I&O: Vital Signs Temp 98.6 F 12/25/18 21:33 Pulse 79 12/25/18 21:33 Resp 19 12/25/18 21:33 BP 120/65 12/25/18 21:33 Pulse Ox 97 12/25/18 21:33 Intake & Output 12/25/18 12/26/18 12/26/18 18:59 06:59 18:59 Intake Total 1200 240 Balance 1200 240 Intake: Oral 1200 240 Other: # Voids 2 # Bowel Movements 0 Active Medications: Current Medications Acetaminophen (Tylenol) 650 mg PO Q4HR PRN PRN Reason: Mild Pain / Temp above 100 Stop: 02/08/19 16:14 Last Admin: 12/23/18 12:01 Dose: 650 mg Al Hydrox/Mg Hydrox/Simethicone (Maalox) 30 ml PO Q4HR PRN PRN Reason: GI DISTRESS Stop: 10/19/19 16:14 Aspirin (Ecotrin) 81 mg PO DAILY [facility] Stop: 02/10/19 08:59 Last Admin: 12/25/18 09:04 Dose: 81 mg Atorvastatin Calcium (Lipitor) 10 mg PO HS [facility]; Protocol Stop: 02/09/19 20:59 Last Admin: 12/25/18 21:10 Dose: 10 mg Clopidogrel Bisulfate (Plavix) 75 mg PO DAILY [facility] Stop: 02/10/19 08:59 Last Admin: 12/25/18 09:05 Dose: 75 mg Divalproex Sodium (Depakote Dr) 250 mg PO BID [facility]; Protocol Stop: 02/10/19 08:59 Last Admin: 12/25/18 17:26 Dose: 250 mg Docusate Sodium (Colace) 100 mg PO BID [facility] Stop: 02/09/19 16:59 Last Admin: 12/25/18 17:26 Dose: 100 mg Donepezil HCl (Aricept) 10 mg PO DAILY [facility] Stop: 02/10/19 08:59 Last Admin: 12/25/18 09:06 Dose: 10 mg Lorazepam (Ativan) 0.5 mg PO Q4HR PRN; Protocol PRN Reason: anxiety Stop: 01/09/19 16:14 Last Admin: 12/25/18 17:24 Dose: 0.5 mg Magnesium Hydroxide (Milk Of Magnesia) 30 ml PO HS PRN PRN Reason: Constipation Multivitamins/Vitamin C (Theragran) 1 tab PO DAILY [facility] Stop: 02/09/19 08:59 Last Admin: 12/25/18 09:04 Dose: 1 tab Polyethylene Glycol (Miralax) 17 gm PO DAILY [facility] Stop: 02/10/19 08:59 Last Admin: 12/25/18 09:07 Dose: 17 gm Quetiapine Fumarate 100 mg/ (Quetiapine Fumarate 25 mg) 125 mg PO BID [facility] Stop: 02/22/19 16:59 Last Admin: 12/25/18 17:25 Dose: 125 mg Senna (Senna) 8.6 mg PO HS [facility] Stop: 02/09/19 20:59 Last Admin: 12/25/18 21:10 Dose: 8.6 mg Tamsulosin HCl (Flomax) 0.4 mg PO HS [facility] Stop: 02/09/19 20:59 Last Admin: 12/25/18 21:09 Dose: 0.4 mg Zolpidem Tartrate (Ambien) 5 mg PO HS PRN PRN Reason: Insomnia Stop: 02/08/19 16:14 Last Admin: 12/25/18 21:10 Dose: 5 mg General: Alert, Oriented x3, No acute distress HEENT: Atraumatic, PERRLA, EOMI Neck: Supple Cardiovascular: Regular rate, Normal S1, Normal S2 Lungs: Clear to auscultation Abdomen: Bowel sounds, Soft Extremities: no Clubbing, no Cyanosis, no Edema Neurological: Normal gait Assessment/Plan - Assessment Assessment: psychosis Major Depression Dementia Dyslipidemia BPH Chronic constipation OA h/o CVA chronic back pain - Plan Plan: admit to [facility] continue home meds Nutritional Asmnt/Malnutr-PDOC - Dietary Evaluation Malnutrition Findings (Please click <Entered> for more info): Nutritional Asmnt/Malnutrition Start: 12/17/18 14: 08 Text: Status: Complete Freq: Protocol: Document 12/17/18 14:08 BOB (Rec: 12/17/18 14:10 BOB [id number]) Nutritional Asmnt/Malnutrition Patient General Information Nutritional Screening Low Risk Diagnosis Psychosis Pertinent Medical Hx/Surgical Hx Major depression, Dementia, Dyslipidemia, BPH, Chronic constipation, OA, CVA, Chronic Back Pain Subjective Information Pt is a 83-year-old male admitted on 12/10 from SNF d/t combative behavior. Pt speaks Serbian. Pt was prioritized as low risk to be seen on 12/16, Pt had discharge orders for and was leaving per RN, but SNF did not want the Pt back, so IA is being completed today. HT: 58 WT: 165 LB (75 kg) BMI: 25.09 (Overweight) GI: WNL, Soft, Non-tender BM: 12/16 x1 I/O: 240/1 (+239) Skin: WNL, Intact Juan: 18 Diet Order: Regular Estimated Energy Needs: ( Geriatric, CBW) 0405-7062 kcals (25-30 kcals/ kg) 75-90g Pro (1.0-1.2 g/kg) 7308-9767 ml (25-30 ml/kg) Pt is eating 75-100% of meals Per Meal/Nutrition Activity Record. Dietary is currently providing an estimated 2600 kcals and 120gm Pro, per Pt PO intake this is providing an estimated 2275 kcals and 105gm Pro to meet 100+% kcal and 100+% Pro needs. Current Diet Order/ Nutrition Support Regular Pertinent Medications Maalox (PRN), Lipitor, Colace, MOM (PRN), Theragran, Miralax , Senna, Flomax Pertinent Labs 12/04: Glucose 106, Alb 3.8 Nutritional Hx/Data Height 1.73 m Height (Calculated Centimeters) 172.7 Current Weight (lbs) 74.843 kg Weight (Calculated Kilograms) 74.8 Weight (Calculated Grams) 51372.7 [place] Body Weight 154 LB (70 kg) % [place] Body Weight 107 Body Mass Index (BMI) 25.0 Weight Status Overweight GI Symptoms GI Symptoms None Last BM 12/16 x1 Skin Integrity/Comment: Skin: WNL, Intact Juan: 18 Estimated Nutritional Goals BEE in Kcals: Using Current wt Calories/Kcals/Kg 25-30 Kcals Calculated 5699-7873 Protein: Using Current wt Protein g/k.0-1.2 Protein Calculated 75-90 Fluid: ml 7244-3563 ml (25-30 ml/kg) Nutritional Problem No current Nutrition Prob Problem No nutrition diagnosis at this time. Etiology n/a Signs/Symptoms: n/a Malnutrition Related to Morbid Obesity Malnutrition related to morbid obesity No Intervention/Recommendation Comments Continue with Regular diet as ordered. Expected Outcomes/Goals Expected Outcomes/Goals 1. PO intake to continue to meet 75% of nutritional needs. 2. Monitor PO intake, wt, nutrition related labs, and skin integrity. 3. F/U as low risk in 7 days, 12/24
[2018-12-26] MEDS: Multivitamin Tab PO SCH (11:46)
[2018-12-26] MEDS: POLYETHYLENE GLYCOL 3350 17 GM PACK PO SCH (11:46)
[2018-12-26] MEDS: Atorvastatin Calcium 10 MG TAB PO SCH (20:55)
--- NOTE | 2018-12-26 21:17 | Progress Notes ---
DATE: 12/26/2018 SUBJECTIVE: The patient in the hospital, still yelling, very loud, yelling at times, responding to internal stimuli, apparently speaking in his mother tongue, although he can speak some [place] and inappropriate trying to touch others, noisy, loud, reach me when I come in the room, but is asking odd questions. ASSESSMENT: The patient likely at his baseline, generally calmer than when he first came in here, but still unruly, ongoing behavioral disturbances. We are also trying to work on placement. PLAN: We will adjust medications, trying to find him a place to go, while we stabilize him further. JOB# [id number]
--- NOTE | 2018-12-27 08:02 | General Progress Note ---
Subjective - Review of Systems Service Date: 12/27/18 Subjective: Patient is awake, alert, afebrile VS T 98.2 P 91 R 20 BP 137/75 Objective - Results Result Diagrams: 12/04/18 21:30 12/04/18 21:30 Recent Labs: Laboratory Last Values WBC 5.7 Th/cmm (4.8-10.8) 12/04/18 21:30 RBC 4.58 Mil/cmm (3.80-5.80) 12/04/18 21:30 Hgb 13.9 gm/dL (12-16) 12/04/18 21:30 Hct 41.8 % (41.0-60) 12/04/18 21:30 MCV 91.3 fl (80-99) 12/04/18 21:30 MCH 30.4 pg (27.0-31.0) 12/04/18 21:30 MCHC Differential 33.3 pg (28.0-36.0) 12/04/18 21:30 RDW 11.3 % (11.5-20.0) L 12/04/18 21:30 Plt Count 286 Th/cmm (150-400) 12/04/18 21:30 MPV 8.4 fl 12/04/18 21:30 Neutrophils % 49.5 % (40.0-80.0) 12/04/18 21:30 Lymphocytes % 40.0 % (20.0-50.0) 12/04/18 21:30 Monocytes % 7.9 % (2.0-10.0) 12/04/18 21:30 Eosinophils % 2.6 % (0.0-5.0) 12/04/18 21:30 Basophils % 0.0 % (0.0-2.0) 12/04/18 21:30 Sodium 141 mEq/L (136-145) 12/04/18 21:30 Potassium 3.9 mEq/L (3.5-5.1) 12/04/18 21:30 Chloride 106 mEq/L (98-107) 12/04/18 21:30 Carbon Dioxide 26.3 mEq/L (21.0-31.0) 12/04/18 21:30 Anion Gap 12.6 (7.0-16.0) 12/04/18 21:30 BUN 19 mg/dL (7-25) 12/04/18 21:30 Creatinine 0.9 mg/dL (0.7-1.3) 12/04/18 21:30 Est GFR ( Amer) TNP 12/04/18 21:30 Est GFR (Non-Af Amer) TNP 12/04/18 21:30 BUN/Creatinine Ratio 21.1 12/04/18 21:30 Glucose 106 mg/dL (70-105) H 12/04/18 21:30 Calcium 9.1 mg/dL (8.6-10.3) 12/04/18 21:30 Total Bilirubin 0.5 mg/dL (0.3-1.0) 12/04/18 21:30 AST 14 U/L (13-39) 12/04/18 21:30 ALT 11 U/L (7-52) 12/04/18 21:30 Alkaline Phosphatase 52 U/L (34-104) 12/04/18 21:30 Total Protein 6.5 gm/dL (6.0-8.3) 12/04/18 21:30 Albumin 3.8 gm/dL (4.2-5.5) L 12/04/18 21:30 Globulin 2.7 gm/dL 12/04/18 21:30 Albumin/Globulin Ratio 1.4 (1.0-1.8) 12/04/18 21:30 - Physical Exam Vitals and I&O: Vital Signs Temp 98.2 F 12/26/18 14:00 Pulse 91 12/26/18 14:00 Resp 20 12/26/18 20:00 BP 137/75 12/26/18 14:00 Pulse Ox 96 12/26/18 14:00 Intake & Output 12/26/18 12/27/18 12/27/18 18:59 06:59 18:59 Intake Total 1000 Balance 1000 Intake: Oral 1000 Other: # Voids 3 # Bowel Movements 1 Active Medications: Current Medications Acetaminophen (Tylenol) 650 mg PO Q4HR PRN PRN Reason: Mild Pain / Temp above 100 Stop: 02/08/19 16:14 Last Admin: 12/23/18 12:01 Dose: 650 mg Al Hydrox/Mg Hydrox/Simethicone (Maalox) 30 ml PO Q4HR PRN PRN Reason: GI DISTRESS Stop: 02/08/19 16:14 Aspirin (Ecotrin) [address] [facility] Stop: 02/10/19 08:59 Last Admin: 12/26/18 11:45 Dose: 81 mg Atorvastatin Calcium (Lipitor) [address] [facility]; Protocol Stop: 02/09/19 20:59 Last Admin: 12/26/18 20:55 Dose: 10 mg Clopidogrel Bisulfate (Plavix) 75 mg PO DAILY [facility] Stop: 02/10/19 08:59 Last Admin: 12/26/18 11:45 Dose: 75 mg Divalproex Sodium (Depakote Dr) [address] [facility]; Protocol Stop: 02/10/19 08:59 Last Admin: 12/26/18 16:30 Dose: 250 mg Docusate Sodium (Colace) [address] [facility] Stop: 02/09/19 16:59 Last Admin: 12/26/18 16:30 Dose: 100 mg Donepezil HCl (Aricept) [address] [facility] Stop: 02/10/19 08:59 Last Admin: 12/26/18 11:45 Dose: 10 mg Lorazepam (Ativan) 0.5 mg PO Q4HR PRN; Protocol PRN Reason: anxiety Stop: 01/09/19 16:14 Last Admin: 12/26/18 16:30 Dose: 0.5 mg Magnesium Hydroxide (Milk Of Magnesia) 30 ml PO HS PRN PRN Reason: Constipation Multivitamins/Vitamin C (Theragran) [address] [facility] Stop: 02/09/19 08:59 Last Admin: 12/26/18 11:46 Dose: Not Given Polyethylene Glycol (Miralax) [address] [facility] Stop: 02/10/19 08:59 Last Admin: 12/26/18 11:46 Dose: Not Given Quetiapine Fumarate 100 mg/ (Quetiapine Fumarate 25 mg) [address] [facility] Stop: 02/22/19 16:59 Last Admin: 12/26/18 16:30 Dose: 125 mg Senna (Senna) 8.[address] [facility] Stop: 02/09/19 20:59 Last Admin: 12/26/18 20:55 Dose: 8.6 mg Tamsulosin HCl (Flomax) 0.[address] [facility] Stop: 02/09/19 20:59 Last Admin: 12/26/18 20:55 Dose: 0.4 mg Zolpidem Tartrate (Ambien) 5 mg PO HS PRN PRN Reason: Insomnia Stop: 02/08/19 16:14 Last Admin: 12/26/18 20:55 Dose: 5 mg General: Alert, Oriented x3, No acute distress HEENT: Atraumatic, PERRLA, EOMI Neck: Supple Cardiovascular: Regular rate, Normal S1, Normal S2 Lungs: Clear to auscultation Abdomen: Bowel sounds, Soft Extremities: no Clubbing, no Cyanosis, no Edema Neurological: Normal gait Assessment/Plan - Assessment Assessment: psychosis Major Depression Dementia Dyslipidemia BPH Chronic constipation OA h/o CVA chronic back pain - Plan Plan: admit to [facility] continue home meds Nutritional Asmnt/Malnutr-PDOC - Dietary Evaluation Malnutrition Findings (Please click <Entered> for more info): Nutritional Asmnt/Malnutrition Start: 12/17/18 14: 08 Text: Status: Complete Freq: Protocol: Document 12/17/18 14:08 BOB (Rec: 12/17/18 14:10 BOB [id number]) Nutritional Asmnt/Malnutrition Patient General Information Nutritional Screening Low Risk Diagnosis Psychosis Pertinent Medical Hx/Surgical Hx Major depression, Dementia, Dyslipidemia, BPH, Chronic constipation, OA, CVA, Chronic Back Pain Subjective Information Pt is a 83-year-old male admitted on 12/10 from SNF d/t combative behavior. Pt speaks Italian. Pt was prioritized as low risk to be seen on 12/16, Pt had discharge orders for and was leaving per RN, but SNF did not want the Pt back, so IA is being completed today. HT: 58 WT: 165 LB (75 kg) BMI: 25.09 (Overweight) GI: WNL, Soft, Non-tender BM: 12/16 x1 I/O: 240/1 (+239) Skin: WNL, Intact Juan: 18 Diet Order: Regular Estimated Energy Needs: ( Geriatric, CBW) 8680-5979 kcals (25-30 kcals/ kg) 75-90g Pro (1.0-1.2 g/kg) 7023-8375 ml (25-30 ml/kg) Pt is eating 75-100% of meals Per Meal/Nutrition Activity Record. Dietary is currently providing an estimated 2600 kcals and 120gm Pro, per Pt PO intake this is providing an estimated 2275 kcals and 105gm Pro to meet 100+% kcal and 100+% Pro needs. Current Diet Order/ Nutrition Support Regular Pertinent Medications Maalox (PRN), Lipitor, Colace, MOM (PRN), Theragran, Miralax , Senna, Flomax Pertinent Labs 12/04: Glucose 106, Alb 3.8 Nutritional Hx/Data Height 1.73 m Height (Calculated Centimeters) 172.7 Current Weight (lbs) 74.843 kg Weight (Calculated Kilograms) 74.8 Weight (Calculated Grams) 25847.7 [place] Body Weight 154 LB (70 kg) % [place] Body Weight 107 Body Mass Index (BMI) 25.0 Weight Status Overweight GI Symptoms GI Symptoms None Last BM 12/16 x1 Skin Integrity/Comment: Skin: WNL, Intact Juan: 18 Estimated Nutritional Goals BEE in Kcals: Using Current wt Calories/Kcals/Kg 25-30 Kcals Calculated 7773-4449 Protein: Using Current wt Protein g/k.0-1.2 Protein Calculated 75-90 Fluid: ml 0166-9410 ml (25-30 ml/kg) Nutritional Problem No current Nutrition Prob Problem No nutrition diagnosis at this time. Etiology n/a Signs/Symptoms: n/a Malnutrition Related to Morbid Obesity Malnutrition related to morbid obesity No Intervention/Recommendation Comments Continue with Regular diet as ordered. Expected Outcomes/Goals Expected Outcomes/Goals 1. PO intake to continue to meet 75% of nutritional needs. 2. Monitor PO intake, wt, nutrition related labs, and skin integrity. 3. F/U as low risk in 7 days, 12/24
[2018-12-27] MEDS: POLYETHYLENE GLYCOL 3350 17 GM PACK PO SCH (10:05)
[2018-12-27] MEDS: Multivitamin Tab PO SCH (10:05)
--- NOTE | 2018-12-28 02:06 | Progress Notes ---
DATE: 12/27/2018 SUBJECTIVE: The patient in the hospital, easily irritated, yelling at times, responding to internal stimuli. Sleeping right now, but arousable, still with some unruly behaviors, loud, not really talking to me, sleeping, arousable, but then goes back to sleep and not engaging whatsoever this morning. ASSESSMENT: The patient is still unruly, periods of yelling. We are trying to confirm a safe discharge plan. We will continue to monitor while we further stabilize him. Continue dosing of Seroquel. JOB# [id number]
== END 2018-12-27 17:40 | DRG 885 ==
LOC: ER 20:20 → GERO2 12-10 10:12 → GERO 12-10 18:03
PROVIDERS: ADMIT Psychiatry & Neurology Psychiatry; ATTEND Psychiatry & Neurology Psychiatry
DX: F29 Unspecified psychosis not due to a substance or known physiological condition (principal); F03.90 Unspecified dementia, unspecified severity, without behavioral disturbance, psychotic disturbance, mood disturbance, and anxiety; F39 Unspecified mood [affective] disorder; F41.9 Anxiety disorder, unspecified; N40.0 Benign prostatic hyperplasia without lower urinary tract symptoms; E78.5 Hyperlipidemia, unspecified; K59.09 Other constipation; M19.90 Unspecified osteoarthritis, unspecified site; G89.29 Other chronic pain; M54.89 Other dorsalgia; F32.9 Major depressive disorder, single episode, unspecified; Z86.73 Personal history of transient ischemic attack (TIA), and cerebral infarction without residual deficits
CPT/HCPCS: 36415-UA; 80053-TC; 83036-90; 85025-TC; 93005; G0410; J1200; J1630; J2060; Z7610